=== PATIENT | female | born 1935 | race African-American/Black ===

== ENCOUNTER → 2016-04-29 | Outpatient (CLI) | payer MEDICARE, OTHER ==
[2015-04-18 08:31] VITALS: BP 179/84
[~2016-04-29] MED LIST: AMLO10TA2 PO; AZIT250T PO; CARV6.252 PO; FLUT1DIS3 IH; Ipratropium/Albuterol Sulfate NEB; LISI40TA PO; PROM5SYR2 PO; SIMV20TA3 PO
[2016-04-29 11:29] LABS: CHOLESTEROL/HDL RATIO 2.5
== END | disposition home or self-care (01) ==
LOC: LAB 10:00
PROVIDERS: ATTEND Internal Medicine Interventional Cardiology
DX: E78.5 Hyperlipidemia, unspecified (principal)
CPT/HCPCS: 36415; 80061; 84450; 84460

== ENCOUNTER 2017-08-08 22:45 | Emergency (ER) | payer MEDICARE, OTHER ==
[2017-08-08 23:53] LABS: ADD MAN DIFF? NO
[2017-08-08 23:55] LABS: BASO # 0.1 x10^3/uL (0.0-0.2); BASO % 1 % (0-3); EOS % 11 % (0-3); HEMATOCRIT 39.1 % (36.0-47.0); HEMOGLOBIN 13.4 g/dL (12.0-15.5); LYMPH # 2.8 x10^3/uL (1.0-4.8); LYMPH % 30 % (24-48); MEAN CORPUSCULAR HEMOGLOBIN 34 pg (25-35); MEAN CORPUSCULAR HGB CONC 34 g/dL (31-37); MEAN CORPUSCULAR VOLUME 97 fL (79-100); MONO % 10 % (0-9); NEUT # 4.5 x10^3uL (1.8-7.7); NEUT % 48 % (31-73); PLATELET COUNT 198 x10^3/uL (140-400); RED BLOOD COUNT 4.02 x10^6/uL (3.50-5.40); RED CELL DISTRIBUTION WIDTH 12.9 % (11.5-14.5); WHITE BLOOD COUNT 9.4 x10^3/uL (4.0-11.0)
[2017-08-08] MEDS: diphenhydrAMINE 50 MG/ML VIAL IVP (23:57)
[2017-08-08] MEDS: hydrALAZINE 20 MG/ML VIAL. IVP (23:57)
[2017-08-09 00:03] LABS: SALIC 4.8 mg/dL (2.8-20.0)
[2017-08-09 00:04] LABS: ANION GAP 10 (6-14); BLOOD UREA NITROGEN 24 mg/dL (7-20); CALCIUM 9.2 mg/dL (8.5-10.1); CARBON DIOXIDE 23 mmol/L (21-32); CHLORIDE 105 mmol/L (98-107); CREATININE 1.6 mg/dL (0.6-1.0); GFR 37.6; GLUCOSE 98 mg/dL (70-99); POTASSIUM 3.9 mmol/L (3.5-5.1); SODIUM 138 mmol/L (136-145)
[2017-08-09 00:14] LABS: TROPONINI < 0.017 ng/mL (0.000-0.055)
[2017-08-09 00:40] LABS: BILIRUBIN,URINE NEGATIVE (NEG); CLARITY,URINE CLEAR; COLOR,URINE YELLOW; GLUCOSE,URINE NEGATIVE (NEG); NITRITE,URINE NEGATIVE (NEG); PH,URINE 5.5; PROTEIN,URINE NEGATIVE (NEG-TRACE); UROBILINOGEN,URINE 0.2 mg/dL (0.2 mg/dL)
[2017-08-09 00:54] LABS: BACTERIA,URINE FEW /HPF (0-FEW); RBC,URINE RARE /HPF (0-2); SQUAMOUS EPITHELIAL CELL,UR MOD /LPF
== END 2017-08-09 01:10 | disposition home or self-care (01) ==
LOC: ER 08-09 01:10
DX: I10 Essential (primary) hypertension (principal); J45.909 Unspecified asthma, uncomplicated; K21.9 Gastro-esophageal reflux disease without esophagitis
CPT/HCPCS: 36415; 80048; 80329; 81001; 84484; 85025; 93005; 96374; 96375; 99285-25; J0360; J1200

== ENCOUNTER → 2017-09-30 | Outpatient (CLI) | payer MEDICARE ==
[2017-08-09 00:57] VITALS: BP 154/72
[~2017-09-30] MED LIST changes: +LISI-130 PO; -LISI40TA PO
--- NOTE | 2017-09-30 15:28 | KCIC ---
History: Postmenopausal screening. Black female. Comparison: None. Findings: Bone Densitometry was performed with dual photon absorption of the lumbar spine and left hip. Lumbar Spine: Bone density is 1.186 g/cm2 for L1-L4. T-Score is 1.3. Z-score is 3.3. Left hip: Bone density is 0.759 g/cm2. T-Score is -1.5. Z-score is 0.2. IMPRESSION: 1. Osteopenia of the left hip. 2. Bone mineral density of lumbar spine appears within normal limits. World Health definition of osteoporosis and osteopenia: Normal = T-Score at or above -1.0; osteopenia = T-score between -1.0 and -2.5; osteoporosis = T-score at or below -2.5 Electronically signed by: Matias Barahona MD (09/30/2017 3:24 PM) [facility] [place]
--- NOTE | 2017-09-30 17:45 | KCIC ---
Bilateral digital screening mammograms with 3-D tomosynthesis: Reason for examination: Routine screening. Comparison is made to previous studies dated 12/07/2014 and 10/05/2013.. Bilateral mammograms in CC and oblique projections were obtained with 2-D imaging and 3-D tomosynthesis imaging on a Siemens Inspiration unit and reviewed on the workstation. Interpretation was made with the benefit of CAD. The skin and nipples show no abnormalities. No abnormal axillary lymph nodes are seen. The breast parenchyma shows scattered fatty and fibroglandular density. (Breast density: Category B.) There is a 1.1 cm nodule present at the 7:00 position anteriorly in the left breast which shows a mild interval increase in size when compared to the previous examinations. There are additional small nodules seen bilaterally which are unchanged. There are no new dominant masses, suspicious calcifications or architectural distortion. Benign calcifications are present. Impression: 1.1 cm nodule at the 7:00 position anteriorly in the left breast which shows some mild increase in overall size. This appears to been cystic on previous ultrasound examination however. No other new abnormalities are seen. Recommend routine mammographic follow-up. BI-RADS Category 2: Benign. "Our facility is accredited by the [employer] Mammography Program." "Our facility is accredited by the [employer] Mammography Program." This patient's information has been entered into a reminder system for the patient to be notified with the results of her examination and a target date for the next mammogram. Electronically signed by: Lidia Hernandez MD (09/30/2017 5:41 PM) [id number]
== END | disposition home or self-care (01) ==
LOC: KCIC DEXA 08:38
PROVIDERS: ATTEND Physician Assistant Surgical
DX: Z12.31 Encounter for screening mammogram for malignant neoplasm of breast (principal); Z13.820 Encounter for screening for osteoporosis; N63.24 Unspecified lump in the left breast, lower inner quadrant; M85.88 Other specified disorders of bone density and structure, other site; I11.0 Hypertensive heart disease with heart failure; I50.32 Chronic diastolic (congestive) heart failure; E11.9 Type 2 diabetes mellitus without complications; E78.00 Pure hypercholesterolemia, unspecified; J45.909 Unspecified asthma, uncomplicated; K21.9 Gastro-esophageal reflux disease without esophagitis; Z78.0 Asymptomatic menopausal state; Z90.49 Acquired absence of other specified parts of digestive tract; M19.90 Unspecified osteoarthritis, unspecified site
CPT/HCPCS: 77063; 77067; 77080

== ENCOUNTER 2018-02-06 08:13 | Observation (INO) | payer MEDICARE ==
[~2018-02-06] VITALS: Ht 154.9 cm; Wt 80.9 kg
[~2018-02-06 08:13] MED LIST changes: -AMLO10TA2 PO; +AMLO10TA6 PO; +CARV6.2511 PO; -CARV6.252 PO
[2018-02-06 08:51] LABS: BASO # 0.1 x10^3/uL (0.0-0.2); BASO % 1 % (0-3); EOS % 12 % (0-3); HEMATOCRIT 40.5 % (36.0-47.0); HEMOGLOBIN 14.2 g/dL (12.0-15.5); LYMPH % 24 % (24-48); MEAN CORPUSCULAR HEMOGLOBIN 34 pg (25-35); MEAN CORPUSCULAR HGB CONC 35 g/dL (31-37); MEAN CORPUSCULAR VOLUME 97 fL (79-100); MONO # 0.8 x10^3/uL (0.0-1.1); MONO % 9 % (0-9); NEUT # 4.6 x10^3uL (1.8-7.7); NEUT % 54 % (31-73); PLATELET COUNT 199 x10^3/uL (140-400); RED BLOOD COUNT 4.19 x10^6/uL (3.50-5.40); RED CELL DISTRIBUTION WIDTH 13.1 % (11.5-14.5); WHITE BLOOD COUNT 8.6 x10^3/uL (4.0-11.0)
[2018-02-06 08:59] LABS: CALCIUM 9.6 mg/dL (8.5-10.1); CREATININE 1.5 mg/dL (0.6-1.0); GFR 40.4; POTASSIUM 4.1 mmol/L (3.5-5.1)
--- NOTE | 2018-02-06 08:59 | PHYS DOC ---
Past Medical History Past Medical History: Asthma, GERD, Hypertension Additional Past Medical Histor: "heart valve problem" Past Surgical History: Cholecystectomy, Tubal ligation Additional Past Surgical Histo: neck surgery, sinus surgery, lymph nodes removed Alcohol Use: None Drug Use: None Adult General Chief Complaint Chief Complaint: SHORTNESS OF BREATH HPI HPI Patient is an 82-year-old female who presents to the emergency department for evaluation. She states that for the past 3 days, she has had "tightness" in her breathing. She has not had any chest pain, or other discomfort in her chest. She states she has a history of asthma, and this feels like her prior asthma flares. She has been using her nebulizer machine at home. She has not had any significant cough. She has not had any fevers chills, nausea, vomiting. There are no alleviating, or exacerbating factors to her symptoms, although she states that exertion does seem to worsen her symptoms. She has not had any significant orthopnea, but states she did not sleep well last night. Upon arrival, she is noted to be no respiratory distress, have no wheezing, with a normal oxygen saturation of 100%, on room air. Review of Systems Review of Systems Constitutional: Denies fever or chills [] Eyes: Denies change in visual acuity, redness, or eye pain [] HENT: Denies nasal congestion or sore throat [] Respiratory: Denies cough. Reports shortness of breath [] Cardiovascular: The patient denies any chest pain, palpitations, or orthopnea [] GI: Denies abdominal pain, nausea, vomiting, bloody stools or diarrhea [] : Denies dysuria or hematuria [] Musculoskeletal: Denies back pain or joint pain [] Integument: Denies rash or skin lesions [] Neurologic: Denies headache, focal weakness or sensory changes [] Endocrine: Denies polyuria or polydipsia [] All other systems were reviewed and found to be within normal limits, except as documented in this note. Current Medications Current Medications Current Medications Medications (Trade) Dose Ordered Sig/Bettie Start Time Stop Time Status Last Admin Dose Admin Albuterol/ Ipratropium (Duoneb) 3 ml 1X ONCE 02/06/18 09:45 02/06/18 09:46 DC 02/06/18 09:42 3 ML Allergies Allergies Allergies Coded Allergies Type Severity Reaction Last Updated Verified No Known Drug Allergies 02/22/13 No Physical Exam Physical Exam PHYSICAL EXAM: CONSTITUTIONAL: Well developed, well nourished HEAD: normocephalic, atraumatic EENT: PERRL, EOMI. Conjunctivae normal color, sclerae non-icteric; moist mucous membranes. NECK: Supple, non-tender; no meningismus. LUNGS: Lungs CTA, breathing even and unlabored. Normal air movement. HEART: Regular rate and rhythm, no murmur CHEST: No deformity; non-tender ABDOMEN: The abdomen is soft, and non-tender, no masses or bruits. EXTREM: Normal ROM; no deformity, no calf tenderness. Normal pulses palpable in all extremities. There is no pedal edema. SKIN: No rash; no diaphoresis NEURO: Alert; normal speech and cognition; CN's grossly intact; strength grossly intact without focal deficit. BACK: No CVA TTP. Current Patient Data Vital Signs Vital Signs Date Time Temp Pulse Resp B/P (MAP) Pulse Ox O2 Delivery O2 Flow Rate FiO2 02/06/18 09:44 99 Room Air 02/06/18 09:17 64 18 131/60 (83) 02/06/18 08:38 98.0 98.0 Lab Values Laboratory Tests Test 02/06/18 08:26 White Blood Count 8.6 x10^3/uL (4.0-11.0) Red Blood Count 4.19 x10^6/uL (3.50-5.40) Hemoglobin 14.2 g/dL (12.0-15.5) Hematocrit 40.5 % (36.0-47.0) Mean Corpuscular Volume 97 fL (79-100) Mean Corpuscular Hemoglobin 34 pg (25-35) Mean Corpuscular Hemoglobin Concent 35 g/dL (31-37) Red Cell Distribution Width 13.1 % (11.5-14.5) Platelet Count 199 x10^3/uL (140-400) Neutrophils (%) (Auto) 54 % (31-73) Lymphocytes (%) (Auto) 24 % (24-48) Monocytes (%) (Auto) 9 % (0-9) Eosinophils (%) (Auto) 12 % (0-3) H Basophils (%) (Auto) 1 % (0-3) Neutrophils # (Auto) 4.6 x10^3uL (1.8-7.7) Lymphocytes # (Auto) 2.0 x10^3/uL (1.0-4.8) Monocytes # (Auto) 0.8 x10^3/uL (0.0-1.1) Eosinophils # (Auto) 1.0 x10^3/uL (0.0-0.7) H Basophils # (Auto) 0.1 x10^3/uL (0.0-0.2) Sodium Level 140 mmol/L (136-145) Potassium Level 4.1 mmol/L (3.5-5.1) Chloride Level 105 mmol/L (98-107) Carbon Dioxide Level 25 mmol/L (21-32) Anion Gap 10 (6-14) Blood Urea Nitrogen 30 mg/dL (7-20) H Creatinine 1.5 mg/dL (0.6-1.0) H Estimated GFR (Cockcroft-Gault) 40.4 BUN/Creatinine Ratio 20 (6-20) Glucose Level 118 mg/dL (70-99) H Calcium Level 9.6 mg/dL (8.5-10.1) Total Bilirubin 0.3 mg/dL (0.2-1.0) Aspartate Amino Transferase (AST) 18 U/L (15-37) Alanine Aminotransferase (ALT) 24 U/L (14-59) Alkaline Phosphatase 80 U/L (46-116) Troponin I Quantitative < 0.017 ng/mL (0.000-0.055) ZU-Nyr-Y-Type Natriuretic Peptide 129 pg/mL (0-449) Total Protein 7.8 g/dL (6.4-8.2) Albumin 3.8 g/dL (3.4-5.0) Albumin/Globulin Ratio 1.0 (1.0-1.7) Laboratory Tests 02/06/18 08:26 Laboratory Tests 02/06/18 08:26 EKG EKG [Normal sinus rhythm at a rate of 69 bpm, left axis deviation, occasional PVCs. There are no acute ischemic ST/T changes.] Radiology/Procedures Radiology/Procedures [PROCEDURE: CHEST PA & LATERAL CHEST PA LATERAL CLINICAL INDICATION: SHORTNESS OF BREATH FOR A FEW DAYS WORSE LAST NIGHT COMPARISON: 11/02/2016 FINDINGS: Heart is normal in size. Lungs are hyperinflated with flattening of diaphragm. No focal consolidation or interstitial opacities. No pneumothorax or pleural effusion. Visualized bony thorax is within normal limits. IMPRESSION: Findings of COPD. No acute pulmonary process. ] Course & Med Decision Making Course & Med Decision Making Pertinent Labs and Imaging studies reviewed. (See chart for details) [10:20 AM: The patient's condition remains stable. She is somewhat vague in trying to describe her symptoms of "tightness in her chest. It does seem to be more of a tightness of breathing, rather than actual chest discomfort but she is extremely concerned about the cause of her symptoms, despite normal oxygen saturation, lack of tachycardia, no pleuritic pain, and no wheezing. The patient is desirous of overnight hospitalization for further cardiac evaluation and monitoring. The hospitalist has graciously agreed to admit the patient.] Dragon Disclaimer Dragon Disclaimer This electronic medical record was generated, in whole or in part, using a voice recognition dictation system. Departure Departure Impression: Primary Impression: Dyspnea Additional Impression: Atypical chest pain Disposition: 09 ADMITTED INPATIENT Admitting Physician: Presley Adorno Condition: STABLE Referrals: NO PCP (PCP) Problem Qualifiers ARMOND CHENG MD Feb 06, 2018 08:59
[2018-02-06 09:05] LABS: ALBUMIN 3.8 g/dL (3.4-5.0); TOTAL BILIRUBIN 0.3 mg/dL (0.2-1.0); TOTAL PROTEIN 7.8 g/dL (6.4-8.2)
--- NOTE | 2018-02-06 09:12 | RAD ---
CHEST PA LATERAL CLINICAL INDICATION: SHORTNESS OF BREATH FOR A FEW DAYS WORSE LAST NIGHT COMPARISON: 11/02/2016 FINDINGS: Heart is normal in size. Lungs are hyperinflated with flattening of diaphragm. No focal consolidation or interstitial opacities. No pneumothorax or pleural effusion. Visualized bony thorax is within normal limits. IMPRESSION: Findings of COPD. No acute pulmonary process. Electronically signed by: Bassam Terrazas DO (02/06/2018 9:08 AM) [facility]
[2018-02-06] MEDS ORDERED: IPRATRPIUM/ALBUTEROL 0.5/2.5MG 3 ML NEBU. NEB ONE (09:45)
--- NOTE | 2018-02-06 10:30 | EKG ---
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
[2018-02-06 11:00] VITALS: BP 138/60
--- NOTE | 2018-02-06 11:18 | PDOC1 ---
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 [facility] Past Medical History Past Medical History Past Medical History Past Medical History: Asthma, GERD, Hypertension Additional Past Medical Histor: "heart valve problem" Past Surgical History: Cholecystectomy, Tubal ligation Additional Past Surgical Histo: neck surgery, sinus surgery, lymph nodes removed Alcohol Use: None Drug Use: None family hx ASHD smoked Cardiovascular: HTN, Hyperlipidemia, Valve insufficiency Pulmonary: Asthma, Bronchitis CENTRAL NERVOUS SYSTEM: Other GI: No pertinent hx Heme/Onc: No pertinent hx Hepatobiliary: No pertinent hx, Cholelithiasis Psych: No pertinent hx Musculoskeletal: Osteoarthritis Rheumatologic: No pertinent hx Infectious disease: No pertinent hx Renal/: No pertinent hx Endocrine: No pertinent hx Past Surgical History Past Surgical History: Cholecystectomy, Cataract Removal, Tubal Ligation, Other Family History Family History: Heart Disease, High Cholestrol Social History Smoke: No ALCOHOL: none Drugs: None Current Problem List Problem List Problems Medical Problems: (1) Atypical chest pain Status: Acute (2) Dyspnea Status: Acute Current Medications Current Medications Current Medications Albuterol/ Ipratropium (Duoneb) 3 ml 1X ONCE NEB Last administered on at 09:42; Start 02/06/18 at 09:45; Stop 02/06/18 at 09:46; Status DC Active Scripts Active Prometh-Codein 6.25-10 mg/5 ml (Promethazine HCl/Codeine) 5 Ml Syrup 5 Ml PO Q6- 8HRS PRN Zithromax (Azithromycin) 250 Mg Tablet 1 Pkg PO UD [Ipratropium/Albuterol Sulfate] 3 ML Nebu 3 Ml NEB PRN Q6HRS PRN Reported Advair 250-50 Diskus (Fluticasone/Salmeterol) 1 Each Disk.w.dev 1 Each IH Carvedilol 6.25 Mg Tablet 6.25 Mg PO Amlodipine Besylate 10 Mg Tablet 10 Mg PO Lisinopril 40 Mg Tablet 40 Mg PO Simvastatin 20 Mg Tablet 20 Mg PO Allergies Allergies: Coded Allergies: No Known Drug Allergies (Unverified , 02/22/13) ROS Review of System Review of Systems Review of Systems Constitutional: Denies fever or chills [] Eyes: Denies change in visual acuity, redness, or eye pain [] HENT: Denies nasal congestion or sore throat [] Respiratory: Denies cough. Reports shortness of breath FEELS BETTER AFTER BREATHING RX [] Cardiovascular: The patient denies any chest pain, palpitations, or orthopnea [] GI: Denies abdominal pain, nausea, vomiting, bloody stools or diarrhea [] : Denies dysuria or hematuria [] Musculoskeletal: Denies back pain or joint pain [] Integument: Denies rash or skin lesions [] Neurologic: Denies headache, focal weakness or sensory changes [] Endocrine: Denies polyuria or polydipsia [] 14 PT systems were reviewed and found to be within normal limits, except as documented General: YES: Fatigue ALLERGY AND IMMUNOLOGY: No: Hives, Insect Bite Sensitivity, Itchy/Watery Eyes, Nasal Congestion, Post Nasal Drip, Seasonal Allergies, Other ENDOCRINE: No: Breast Changes, Galactorrhea, Hair Pattern Changes, Hot Flashes , Malaise/lethargy, Mood Swings, Palpitations, Polydipsia/polyuria, Skin Changes , Temperature Intolerance, Unexpected Weight Changes, Other Breast: No New/Changing Breast Lumps, No Nipple changes, No Nipple discharge, No Other Respiratory: YES: Shortness of breath, SOB with excertion Cardiovascular: yes Other (CHEST TIGHTNESS, RIGHT SIDED) Gastrointestinal: No Nausea, No Vomiting, No Abdominal Pain, No Diarrhea, No Constipation, No Melena, No Hematochezia, No Other Physical Exam Physical Exam Physical Exam Physical Exam PHYSICAL EXAM: CONSTITUTIONAL: Well developed, well nourished HEAD: normocephalic, atraumatic EENT: PERRL, EOMI. Conjunctivae normal color, sclerae non-icteric; moist mucous membranes. NECK: Supple, non-tender; no meningismus. LUNGS: Lungs CTA, breathing even and unlabored. Normal air movement. HEART: Regular rate and rhythm, no murmur CHEST: No deformity; non-tender ABDOMEN: The abdomen is soft, and non-tender, no masses or bruits. EXTREM: Normal ROM; no deformity, no calf tenderness. Normal pulses palpable in all extremities. There is no pedal edema. SKIN: No rash; no diaphoresis NEURO: Alert; normal speech and cognition; CN's grossly intact; strength grossly intact without focal deficit. BACK: No CVA TTP. General: Alert, Oriented X3, Cooperative HEENT: Atraumatic, PERRLA, EOMI, Mucous membr. moist/pink Lungs: Normal air movement Heart: S1S2 Breasts: Not examined Abdomen: Normal bowel sounds, Soft, No tenderness, Other (OBESE) Rectal Exam: not examined Extremities: No clubbing, No cyanosis Skin: No rashes, No significant lesion Neuro: Normal speech, Cranial nerves 3-12 NL Psych/Mental Status: Mental status NL, Mood NL Vitals Vitals Vital Signs Date Time Temp Pulse Resp B/P (MAP) Pulse Ox O2 Delivery O2 Flow Rate FiO2 02/06/18 09:44 99 Room Air 02/06/18 09:17 64 18 131/60 (83) 02/06/18 08:38 98.0 98.0 Labs Labs Laboratory Tests Test 02/06/18 08:26 White Blood Count 8.6 x10^3/uL (4.0-11.0) Red Blood Count 4.19 x10^6/uL (3.50-5.40) Hemoglobin 14.2 g/dL (12.0-15.5) Hematocrit 40.5 % (36.0-47.0) Mean Corpuscular Volume 97 fL (79-100) Mean Corpuscular Hemoglobin 34 pg (25-35) Mean Corpuscular Hemoglobin Concent 35 g/dL (31-37) Red Cell Distribution Width 13.1 % (11.5-14.5) Platelet Count 199 x10^3/uL (140-400) Neutrophils (%) (Auto) 54 % (31-73) Lymphocytes (%) (Auto) 24 % (24-48) Monocytes (%) (Auto) 9 % (0-9) Eosinophils (%) (Auto) 12 % (0-3) Basophils (%) (Auto) 1 % (0-3) Neutrophils # (Auto) 4.6 x10^3uL (1.8-7.7) Lymphocytes # (Auto) 2.0 x10^3/uL (1.0-4.8) Monocytes # (Auto) 0.8 x10^3/uL (0.0-1.1) Eosinophils # (Auto) 1.0 x10^3/uL (0.0-0.7) Basophils # (Auto) 0.1 x10^3/uL (0.0-0.2) Sodium Level 140 mmol/L (136-145) Potassium Level 4.1 mmol/L (3.5-5.1) Chloride Level 105 mmol/L (98-107) Carbon Dioxide Level 25 mmol/L (21-32) Anion Gap 10 (6-14) Blood Urea Nitrogen 30 mg/dL (7-20) Creatinine 1.5 mg/dL (0.6-1.0) Estimated GFR (Cockcroft-Gault) 40.4 BUN/Creatinine Ratio 20 (6-20) Glucose Level 118 mg/dL (70-99) Calcium Level 9.6 mg/dL (8.5-10.1) Total Bilirubin 0.3 mg/dL (0.2-1.0) Aspartate Amino Transf (AST/SGOT) 18 U/L (15-37) Alanine Aminotransferase (ALT/SGPT) 24 U/L (14-59) Alkaline Phosphatase 80 U/L (46-116) Troponin I Quantitative < 0.017 ng/mL (0.000-0.055) UG-Mmg-S-Type Natriuretic Peptide 129 pg/mL (0-449) Total Protein 7.8 g/dL (6.4-8.2) Albumin 3.8 g/dL (3.4-5.0) Albumin/Globulin Ratio 1.0 (1.0-1.7) Laboratory Tests Test 02/06/18 08:26 White Blood Count 8.6 x10^3/uL (4.0-11.0) Red Blood Count 4.19 x10^6/uL (3.50-5.40) Hemoglobin 14.2 g/dL (12.0-15.5) Hematocrit 40.5 % (36.0-47.0) Mean Corpuscular Volume 97 fL (79-100) Mean Corpuscular Hemoglobin 34 pg (25-35) Mean Corpuscular Hemoglobin Concent 35 g/dL (31-37) Red Cell Distribution Width 13.1 % (11.5-14.5) Platelet Count 199 x10^3/uL (140-400) Neutrophils (%) (Auto) 54 % (31-73) Lymphocytes (%) (Auto) 24 % (24-48) Monocytes (%) (Auto) 9 % (0-9) Eosinophils (%) (Auto) 12 % (0-3) Basophils (%) (Auto) 1 % (0-3) Neutrophils # (Auto) 4.6 x10^3uL (1.8-7.7) Lymphocytes # (Auto) 2.0 x10^3/uL (1.0-4.8) Monocytes # (Auto) 0.8 x10^3/uL (0.0-1.1) Eosinophils # (Auto) 1.0 x10^3/uL (0.0-0.7) Basophils # (Auto) 0.1 x10^3/uL (0.0-0.2) Sodium Level 140 mmol/L (136-145) Potassium Level 4.1 mmol/L (3.5-5.1) Chloride Level 105 mmol/L (98-107) Carbon Dioxide Level 25 mmol/L (21-32) Anion Gap 10 (6-14) Blood Urea Nitrogen 30 mg/dL (7-20) Creatinine 1.5 mg/dL (0.6-1.0) Estimated GFR (Cockcroft-Gault) 40.4 BUN/Creatinine Ratio 20 (6-20) Glucose Level 118 mg/dL (70-99) Calcium Level 9.6 mg/dL (8.5-10.1) Total Bilirubin 0.3 mg/dL (0.2-1.0) Aspartate Amino Transf (AST/SGOT) 18 U/L (15-37) Alanine Aminotransferase (ALT/SGPT) 24 U/L (14-59) Alkaline Phosphatase 80 U/L (46-116) Troponin I Quantitative < 0.017 ng/mL (0.000-0.055) ZQ-Xzp-U-Type Natriuretic Peptide 129 pg/mL (0-449) Total Protein 7.8 g/dL (6.4-8.2) Albumin 3.8 g/dL (3.4-5.0) Albumin/Globulin Ratio 1.0 (1.0-1.7) VTE Prophylaxis Ordered VTE Prophylaxis Devices: Yes VTE Pharmacological Prophylaxi: Yes Assessment/Plan Assessment/Plan Impression: Dyspnea Atypical chest pain possible asthma MORBID OBESITY HYPERLIPIDEMIA Hypertension ADMITTED INPATIENT tele cardiology consult breathing treatments pulm consult DVT PROPHYLAXIS BUDESONIDE 0.5MG BID NEBS serial troponin i prednisone 50 mg po x 1 now gi prophylaxis CHERYL MARTINES MD Feb 06, 2018 11:18
[2018-02-06] MEDS ORDERED: NON FORMULARY ITEM ([Ipratropium/Albuterol Sulfate] 3 ML) NEB PRN (11:30)
[2018-02-06] MEDS ORDERED: ALBUTEROL SULFATE 2.5 MG/3 ML NEBU. NEB PRN (11:30)
[2018-02-06] MEDS ORDERED: PROMETH/CODEINE 6.25/10MG 5 ML SYRUP. PO PRN (11:30)
[2018-02-06] MEDS ORDERED: predniSONE 10 MG TABLET PO ONE (12:00)
[2018-02-06] MEDS: amLODIPine BESYLATE 10 MG TABLET PO SCH (12:00)
[2018-02-06] MEDS: CARVEDILOL 6.25 MG TABLET. PO SCH ×2 (12:00→17:00)
[2018-02-06] MEDS: LISINOPRIL 20 MG TABLET PO SCH (12:00)
[2018-02-06] MEDS: BUDESONIDE 0.5 MG/2 ML NEBU. NEB SCH ×2 (12:00→19:34)
--- NOTE | 2018-02-06 13:16 | PDOC ---
PULMONARY PROGRESS NOTES Vitals Vital Signs Date Time Temp Pulse Resp B/P (MAP) Pulse Ox O2 Delivery O2 Flow Rate FiO2 02/06/18 10:47 58 22 137/60 (85) 99 Room Air 02/06/18 08:38 98.0 98.0 Labs Laboratory Tests Test 02/06/18 08:26 White Blood Count 8.6 x10^3/uL (4.0-11.0) Red Blood Count 4.19 x10^6/uL (3.50-5.40) Hemoglobin 14.2 g/dL (12.0-15.5) Hematocrit 40.5 % (36.0-47.0) Mean Corpuscular Volume 97 fL (79-100) Mean Corpuscular Hemoglobin 34 pg (25-35) Mean Corpuscular Hemoglobin Concent 35 g/dL (31-37) Red Cell Distribution Width 13.1 % (11.5-14.5) Platelet Count 199 x10^3/uL (140-400) Neutrophils (%) (Auto) 54 % (31-73) Lymphocytes (%) (Auto) 24 % (24-48) Monocytes (%) (Auto) 9 % (0-9) Eosinophils (%) (Auto) 12 % (0-3) Basophils (%) (Auto) 1 % (0-3) Neutrophils # (Auto) 4.6 x10^3uL (1.8-7.7) Lymphocytes # (Auto) 2.0 x10^3/uL (1.0-4.8) Monocytes # (Auto) 0.8 x10^3/uL (0.0-1.1) Eosinophils # (Auto) 1.0 x10^3/uL (0.0-0.7) Basophils # (Auto) 0.1 x10^3/uL (0.0-0.2) Sodium Level 140 mmol/L (136-145) Potassium Level 4.1 mmol/L (3.5-5.1) Chloride Level 105 mmol/L (98-107) Carbon Dioxide Level 25 mmol/L (21-32) Anion Gap 10 (6-14) Blood Urea Nitrogen 30 mg/dL (7-20) Creatinine 1.5 mg/dL (0.6-1.0) Estimated GFR (Cockcroft-Gault) 40.4 BUN/Creatinine Ratio 20 (6-20) Glucose Level 118 mg/dL (70-99) Calcium Level 9.6 mg/dL (8.5-10.1) Magnesium Level 2.2 mg/dL (1.8-2.4) Total Bilirubin 0.3 mg/dL (0.2-1.0) Aspartate Amino Transf (AST/SGOT) 18 U/L (15-37) Alanine Aminotransferase (ALT/SGPT) 24 U/L (14-59) Alkaline Phosphatase 80 U/L (46-116) Troponin I Quantitative < 0.017 ng/mL (0.000-0.055) MP-Xak-X-Type Natriuretic Peptide 129 pg/mL (0-449) Total Protein 7.8 g/dL (6.4-8.2) Albumin 3.8 g/dL (3.4-5.0) Albumin/Globulin Ratio 1.0 (1.0-1.7) Laboratory Tests Test 02/06/18 08:26 White Blood Count 8.6 x10^3/uL (4.0-11.0) Red Blood Count 4.19 x10^6/uL (3.50-5.40) Hemoglobin 14.2 g/dL (12.0-15.5) Hematocrit 40.5 % (36.0-47.0) Mean Corpuscular Volume 97 fL (79-100) Mean Corpuscular Hemoglobin 34 pg (25-35) Mean Corpuscular Hemoglobin Concent 35 g/dL (31-37) Red Cell Distribution Width 13.1 % (11.5-14.5) Platelet Count 199 x10^3/uL (140-400) Neutrophils (%) (Auto) 54 % (31-73) Lymphocytes (%) (Auto) 24 % (24-48) Monocytes (%) (Auto) 9 % (0-9) Eosinophils (%) (Auto) 12 % (0-3) Basophils (%) (Auto) 1 % (0-3) Neutrophils # (Auto) 4.6 x10^3uL (1.8-7.7) Lymphocytes # (Auto) 2.0 x10^3/uL (1.0-4.8) Monocytes # (Auto) 0.8 x10^3/uL (0.0-1.1) Eosinophils # (Auto) 1.0 x10^3/uL (0.0-0.7) Basophils # (Auto) 0.1 x10^3/uL (0.0-0.2) Sodium Level 140 mmol/L (136-145) Potassium Level 4.1 mmol/L (3.5-5.1) Chloride Level 105 mmol/L (98-107) Carbon Dioxide Level 25 mmol/L (21-32) Anion Gap 10 (6-14) Blood Urea Nitrogen 30 mg/dL (7-20) Creatinine 1.5 mg/dL (0.6-1.0) Estimated GFR (Cockcroft-Gault) 40.4 BUN/Creatinine Ratio 20 (6-20) Glucose Level 118 mg/dL (70-99) Calcium Level 9.6 mg/dL (8.5-10.1) Magnesium Level 2.2 mg/dL (1.8-2.4) Total Bilirubin 0.3 mg/dL (0.2-1.0) Aspartate Amino Transf (AST/SGOT) 18 U/L (15-37) Alanine Aminotransferase (ALT/SGPT) 24 U/L (14-59) Alkaline Phosphatase 80 U/L (46-116) Troponin I Quantitative < 0.017 ng/mL (0.000-0.055) AO-Wqk-S-Type Natriuretic Peptide 129 pg/mL (0-449) Total Protein 7.8 g/dL (6.4-8.2) Albumin 3.8 g/dL (3.4-5.0) Albumin/Globulin Ratio 1.0 (1.0-1.7) Medications Active Scripts Medications Dose Route/Sig Max Daily Dose Days Date Category Prometh-Codein 6.25-10 mg/5 ml (Promethazine HCl/Codeine) 5 Ml Syrup 5 Ml PO Q6-8HRS PRN 11/07/14 Rx Zithromax (Azithromycin) 250 Mg Tablet 1 Pkg PO UD 11/07/14 Rx [Ipratropium/Albuterol Sulfate] 3 ML Nebu 3 Ml NEB PRN Q6HRS PRN 11/07/14 Rx Advair 250-50 Diskus (Fluticasone/Salmeterol) 1 Each Disk.w.dev 1 Each IH 02/22/13 Reported Carvedilol (Carvedilol) 6.25 Mg Tablet 6.25 Mg PO 02/22/13 Reported Amlodipine Besylate 10 Mg Tablet 10 Mg PO 02/22/13 Reported Lisinopril 40 Mg Tablet 40 Mg PO 02/22/13 Reported Simvastatin 20 Mg Tablet 20 Mg PO 02/22/13 Reported Impression . NOTE DICTATED ASTHMA EXACERBATION HOME IN AM OK BY RUTH HOROWITZ MD Feb 06, 2018 13:16
[2018-02-06] MEDS ORDERED: HYDR-2869 PO (14:21)
[2018-02-06] MEDS ORDERED: ASPI81TA50 PO (14:21)
[2018-02-06] MEDS ORDERED: PRAV20TA2 PO (14:21)
[2018-02-06] MEDS ORDERED: PANT20TA2 PO (14:21)
[2018-02-06 14:34] VITALS: BP 112/68
[2018-02-06 19:30] VITALS: BP 135/79
[2018-02-06] MEDS ORDERED: ATORVASTATIN CALCIUM 20 MG TABLET PO SCH (21:00)
--- NOTE | 2018-02-06 21:37 | CONS ---
DATE OF CONSULTATION: 02/06/2018 ATTENDING PHYSICIAN: Dr. Yañez. REASON FOR CONSULTATION: The patient seen in pulmonary consultation at the request of Dr. Yañez for increasing shortness of air. HISTORY OF PRESENT ILLNESS: The patient has a history of adult onset asthma, normally uses Advair and p.r.n. albuterol, had a respiratory tract infection several weeks ago. She came in because she was not improving. She had increasing shortness of breath, some chest tightness on the right, radiating to the back, some wheezing, cough mostly nonproductive. Denies fever, chills, or night sweats. PAST MEDICAL HISTORY: Otherwise remarkable for adult-onset asthma, gastroesophageal reflux, hypertension. She has had no formal allergy testing. She could not tell me what triggers her asthma. PAST SURGICAL HISTORY: Status post cholecystectomy, tubal ligation, neck surgery, sinus surgery. ALLERGIES: No known drug allergies. REVIEW OF SYSTEMS: CONSTITUTIONAL: No fever or chills. EYES: No change in visual acuity. HENT: No nasal congestion or sore throat. PULMONARY: As indicated above. CARDIOVASCULAR: No chest pain. No pressure. GASTROINTESTINAL: No nausea, vomiting, diarrhea. GENITOURINARY: No dysuria or frequency. MUSCULOSKELETAL: No localized muscle aches or joint pains. SKIN: No new skin rashes. NEUROLOGIC: No headaches, diplopia or blurred vision. CURRENT MEDICATIONS: List was reviewed. SOCIAL HISTORY: She denies any alcohol or tobacco. PHYSICAL EXAMINATION: GENERAL: The patient was on room air, in no respiratory distress. VITAL SIGNS: Stable. O2 saturation was greater than 92%. HEENT: Eyes, the sclerae were nonicteric. NECK: Jugular venous distention was not elevated. No lymphadenopathy. CHEST: Full expansion. LUNGS: Adequate airway flow, no wheezes. CARDIOVASCULAR: Regular rate and rhythm with S1, S2, no S3. ABDOMEN: Soft, nontender, nondistended. EXTREMITIES: No clubbing, cyanosis or edema. LABORATORY DATA: Reviewed. Chest x-ray reviewed, normal. IMPRESSION: 1. Adult onset asthma with exacerbation. 2. Atypical chest pain, more than likely musculoskeletal. 3. Other comorbidities as listed above. PLAN: 1. Respiratory status compensated enough to discharge home in the a.m. 2. Prednisone 30 mg x 5 days. 3. Continue Advair and p.r.n. albuterol. 4. No need for antibiotics. The patient instructed on the importance of avoiding eating close to bedtime caffeinated beverages and initiating a walking program, walking every day. I do appreciate the privilege in sharing in the patient's care. RUTH POWELL MD DR: HUNTER/lida JOB#: [id number] / [id number]
[2018-02-06 22:50] VITALS: BP 116/57
[2018-02-07 03:30] VITALS: BP 131/61
[2018-02-07 05:10] LABS: BASO % 0 % (0-3); EOS % 0 % (0-3); HEMATOCRIT 36.2 % (36.0-47.0); HEMOGLOBIN 12.6 g/dL (12.0-15.5); LYMPH # 0.8 x10^3/uL (1.0-4.8); LYMPH % 11 % (24-48); MEAN CORPUSCULAR HEMOGLOBIN 34 pg (25-35); MEAN CORPUSCULAR HGB CONC 35 g/dL (31-37); MEAN CORPUSCULAR VOLUME 97 fL (79-100); MONO # 0.4 x10^3/uL (0.0-1.1); MONO % 6 % (0-9); NEUT # 5.9 x10^3uL (1.8-7.7); NEUT % 83 % (31-73); PLATELET COUNT 185 x10^3/uL (140-400); RED BLOOD COUNT 3.74 x10^6/uL (3.50-5.40); RED CELL DISTRIBUTION WIDTH 12.8 % (11.5-14.5); WHITE BLOOD COUNT 7.1 x10^3/uL (4.0-11.0)
[2018-02-07 05:34] LABS: CALCIUM 9.2 mg/dL (8.5-10.1); CREATININE 1.4 mg/dL (0.6-1.0); GFR 43.8
[2018-02-07 07:15] VITALS: BP 137/69
[2018-02-07] MEDS ORDERED: PANTOPRAZOLE 40 MG TABLET.DR. PO SCH (07:30)
--- NOTE | 2018-02-07 08:08 | PDOC ---
PROGRESS NOTES Chief Complaint Chief Complaint Shortness of breath History of Present Illness History of Present Illness 82yo F admitted with progressive shortness of breath with h/o asthma who was admitted after failing outpatient treatment at home. She did have some chest pain, awaiting echocardiogram today. Feeling better today, discussed with daughter bedside. Wishes for discharge home. A/P: Dyspnea - has nebs at home, advair, needs a rescue inhaler Atypical chest pain possible asthma MORBID OBESITY HYPERLIPIDEMIA Hypertension Vitals Vitals Vital Signs Date Time Temp Pulse Resp B/P (MAP) Pulse Ox O2 Delivery O2 Flow Rate FiO2 02/07/18 03:30 98.4 74 18 131/61 (84) 99 Room Air 98.4 Physical Exam General: Alert, Oriented X3, Cooperative Abdomen: Normal bowel sounds, Soft, No tenderness, Other (OBESE) Extremities: No clubbing, No cyanosis Skin: No rashes, No significant lesion Labs LABS Laboratory Tests Test 02/06/18 08:26 02/06/18 13:15 02/06/18 16:30 02/07/18 03:40 White Blood Count 8.6 x10^3/uL (4.0-11.0) 7.1 x10^3/uL (4.0-11.0) Red Blood Count 4.19 x10^6/uL (3.50-5.40) 3.74 x10^6/uL (3.50-5.40) Hemoglobin 14.2 g/dL (12.0-15.5) 12.6 g/dL (12.0-15.5) Hematocrit 40.5 % (36.0-47.0) 36.2 % (36.0-47.0) Mean Corpuscular Volume 97 fL (79-100) 97 fL (79-100) Mean Corpuscular Hemoglobin 34 pg (25-35) 34 pg (25-35) Mean Corpuscular Hemoglobin Concent 35 g/dL (31-37) 35 g/dL (31-37) Red Cell Distribution Width 13.1 % (11.5-14.5) 12.8 % (11.5-14.5) Platelet Count 199 x10^3/uL (140-400) 185 x10^3/uL (140-400) Neutrophils (%) (Auto) 54 % (31-73) 83 % (31-73) Lymphocytes (%) (Auto) 24 % (24-48) 11 % (24-48) Monocytes (%) (Auto) 9 % (0-9) 6 % (0-9) Eosinophils (%) (Auto) 12 % (0-3) 0 % (0-3) Basophils (%) (Auto) 1 % (0-3) 0 % (0-3) Neutrophils # (Auto) 4.6 x10^3uL (1.8-7.7) 5.9 x10^3uL (1.8-7.7) Lymphocytes # (Auto) 2.0 x10^3/uL (1.0-4.8) 0.8 x10^3/uL (1.0-4.8) Monocytes # (Auto) 0.8 x10^3/uL (0.0-1.1) 0.4 x10^3/uL (0.0-1.1) Eosinophils # (Auto) 1.0 x10^3/uL (0.0-0.7) 0.0 x10^3/uL (0.0-0.7) Basophils # (Auto) 0.1 x10^3/uL (0.0-0.2) 0.0 x10^3/uL (0.0-0.2) Sodium Level 140 mmol/L (136-145) 141 mmol/L (136-145) Potassium Level 4.1 mmol/L (3.5-5.1) 4.0 mmol/L (3.5-5.1) Chloride Level 105 mmol/L (98-107) 107 mmol/L (98-107) Carbon Dioxide Level 25 mmol/L (21-32) 24 mmol/L (21-32) Anion Gap 10 (6-14) 10 (6-14) Blood Urea Nitrogen 30 mg/dL (7-20) 23 mg/dL (7-20) Creatinine 1.5 mg/dL (0.6-1.0) 1.4 mg/dL (0.6-1.0) Estimated GFR (Cockcroft-Gault) 40.4 43.8 BUN/Creatinine Ratio 20 (6-20) Glucose Level 118 mg/dL (70-99) 158 mg/dL (70-99) Calcium Level 9.6 mg/dL (8.5-10.1) 9.2 mg/dL (8.5-10.1) Magnesium Level 2.2 mg/dL (1.8-2.4) Total Bilirubin 0.3 mg/dL (0.2-1.0) Aspartate Amino Transf (AST/SGOT) 18 U/L (15-37) Alanine Aminotransferase (ALT/SGPT) 24 U/L (14-59) Alkaline Phosphatase 80 U/L (46-116) Troponin I Quantitative < 0.017 ng/mL (0.000-0.055) < 0.017 ng/mL (0.000-0.055) < 0.017 ng/mL (0.000-0.055) OL-Zud-V-Type Natriuretic Peptide 129 pg/mL (0-449) Total Protein 7.8 g/dL (6.4-8.2) Albumin 3.8 g/dL (3.4-5.0) Albumin/Globulin Ratio 1.0 (1.0-1.7) Assessment and Plan Assessmemt and Plan Problems Medical Problems: (1) Atypical chest pain Status: Acute (2) Dyspnea Status: Acute Comment Review of Relevant I have reviewed the following items terry (where applicable) has been applied. Labs Laboratory Tests Test 02/06/18 08:26 02/06/18 13:15 02/06/18 16:30 02/07/18 03:40 White Blood Count 8.6 x10^3/uL (4.0-11.0) 7.1 x10^3/uL (4.0-11.0) Red Blood Count 4.19 x10^6/uL (3.50-5.40) 3.74 x10^6/uL (3.50-5.40) Hemoglobin 14.2 g/dL (12.0-15.5) 12.6 g/dL (12.0-15.5) Hematocrit 40.5 % (36.0-47.0) 36.2 % (36.0-47.0) Mean Corpuscular Volume 97 fL (79-100) 97 fL (79-100) Mean Corpuscular Hemoglobin 34 pg (25-35) 34 pg (25-35) Mean Corpuscular Hemoglobin Concent 35 g/dL (31-37) 35 g/dL (31-37) Red Cell Distribution Width 13.1 % (11.5-14.5) 12.8 % (11.5-14.5) Platelet Count 199 x10^3/uL (140-400) 185 x10^3/uL (140-400) Neutrophils (%) (Auto) 54 % (31-73) 83 % (31-73) Lymphocytes (%) (Auto) 24 % (24-48) 11 % (24-48) Monocytes (%) (Auto) 9 % (0-9) 6 % (0-9) Eosinophils (%) (Auto) 12 % (0-3) 0 % (0-3) Basophils (%) (Auto) 1 % (0-3) 0 % (0-3) Neutrophils # (Auto) 4.6 x10^3uL (1.8-7.7) 5.9 x10^3uL (1.8-7.7) Lymphocytes # (Auto) 2.0 x10^3/uL (1.0-4.8) 0.8 x10^3/uL (1.0-4.8) Monocytes # (Auto) 0.8 x10^3/uL (0.0-1.1) 0.4 x10^3/uL (0.0-1.1) Eosinophils # (Auto) 1.0 x10^3/uL (0.0-0.7) 0.0 x10^3/uL (0.0-0.7) Basophils # (Auto) 0.1 x10^3/uL (0.0-0.2) 0.0 x10^3/uL (0.0-0.2) Sodium Level 140 mmol/L (136-145) 141 mmol/L (136-145) Potassium Level 4.1 mmol/L (3.5-5.1) 4.0 mmol/L (3.5-5.1) Chloride Level 105 mmol/L (98-107) 107 mmol/L (98-107) Carbon Dioxide Level 25 mmol/L (21-32) 24 mmol/L (21-32) Anion Gap 10 (6-14) 10 (6-14) Blood Urea Nitrogen 30 mg/dL (7-20) 23 mg/dL (7-20) Creatinine 1.5 mg/dL (0.6-1.0) 1.4 mg/dL (0.6-1.0) Estimated GFR (Cockcroft-Gault) 40.4 43.8 BUN/Creatinine Ratio 20 (6-20) Glucose Level 118 mg/dL (70-99) 158 mg/dL (70-99) Calcium Level 9.6 mg/dL (8.5-10.1) 9.2 mg/dL (8.5-10.1) Magnesium Level 2.2 mg/dL (1.8-2.4) Total Bilirubin 0.3 mg/dL (0.2-1.0) Aspartate Amino Transf (AST/SGOT) 18 U/L (15-37) Alanine Aminotransferase (ALT/SGPT) 24 U/L (14-59) Alkaline Phosphatase 80 U/L (46-116) Troponin I Quantitative < 0.017 ng/mL (0.000-0.055) < 0.017 ng/mL (0.000-0.055) < 0.017 ng/mL (0.000-0.055) OP-Fbf-F-Type Natriuretic Peptide 129 pg/mL (0-449) Total Protein 7.8 g/dL (6.4-8.2) Albumin 3.8 g/dL (3.4-5.0) Albumin/Globulin Ratio 1.0 (1.0-1.7) Laboratory Tests Test 02/06/18 08:26 02/06/18 13:15 02/06/18 16:30 02/07/18 03:40 White Blood Count 8.6 x10^3/uL (4.0-11.0) 7.1 x10^3/uL (4.0-11.0) Red Blood Count 4.19 x10^6/uL (3.50-5.40) 3.74 x10^6/uL (3.50-5.40) Hemoglobin 14.2 g/dL (12.0-15.5) 12.6 g/dL (12.0-15.5) Hematocrit 40.5 % (36.0-47.0) 36.2 % (36.0-47.0) Mean Corpuscular Volume 97 fL (79-100) 97 fL (79-100) Mean Corpuscular Hemoglobin 34 pg (25-35) 34 pg (25-35) Mean Corpuscular Hemoglobin Concent 35 g/dL (31-37) 35 g/dL (31-37) Red Cell Distribution Width 13.1 % (11.5-14.5) 12.8 % (11.5-14.5) Platelet Count 199 x10^3/uL (140-400) 185 x10^3/uL (140-400) Neutrophils (%) (Auto) 54 % (31-73) 83 % (31-73) Lymphocytes (%) (Auto) 24 % (24-48) 11 % (24-48) Monocytes (%) (Auto) 9 % (0-9) 6 % (0-9) Eosinophils (%) (Auto) 12 % (0-3) 0 % (0-3) Basophils (%) (Auto) 1 % (0-3) 0 % (0-3) Neutrophils # (Auto) 4.6 x10^3uL (1.8-7.7) 5.9 x10^3uL (1.8-7.7) Lymphocytes # (Auto) 2.0 x10^3/uL (1.0-4.8) 0.8 x10^3/uL (1.0-4.8) Monocytes # (Auto) 0.8 x10^3/uL (0.0-1.1) 0.4 x10^3/uL (0.0-1.1) Eosinophils # (Auto) 1.0 x10^3/uL (0.0-0.7) 0.0 x10^3/uL (0.0-0.7) Basophils # (Auto) 0.1 x10^3/uL (0.0-0.2) 0.0 x10^3/uL (0.0-0.2) Sodium Level 140 mmol/L (136-145) 141 mmol/L (136-145) Potassium Level 4.1 mmol/L (3.5-5.1) 4.0 mmol/L (3.5-5.1) Chloride Level 105 mmol/L (98-107) 107 mmol/L (98-107) Carbon Dioxide Level 25 mmol/L (21-32) 24 mmol/L (21-32) Anion Gap 10 (6-14) 10 (6-14) Blood Urea Nitrogen 30 mg/dL (7-20) 23 mg/dL (7-20) Creatinine 1.5 mg/dL (0.6-1.0) 1.4 mg/dL (0.6-1.0) Estimated GFR (Cockcroft-Gault) 40.4 43.8 BUN/Creatinine Ratio 20 (6-20) Glucose Level 118 mg/dL (70-99) 158 mg/dL (70-99) Calcium Level 9.6 mg/dL (8.5-10.1) 9.2 mg/dL (8.5-10.1) Magnesium Level 2.2 mg/dL (1.8-2.4) Total Bilirubin 0.3 mg/dL (0.2-1.0) Aspartate Amino Transf (AST/SGOT) 18 U/L (15-37) Alanine Aminotransferase (ALT/SGPT) 24 U/L (14-59) Alkaline Phosphatase 80 U/L (46-116) Troponin I Quantitative < 0.017 ng/mL (0.000-0.055) < 0.017 ng/mL (0.000-0.055) < 0.017 ng/mL (0.000-0.055) XE-Jej-W-Type Natriuretic Peptide 129 pg/mL (0-449) Total Protein 7.8 g/dL (6.4-8.2) Albumin 3.8 g/dL (3.4-5.0) Albumin/Globulin Ratio 1.0 (1.0-1.7) Medications Current Medications Albuterol/ Ipratropium (Duoneb) 3 ml 1X ONCE NEB Last administered on at 09:42; Start 02/06/18 at 09:45; Stop 02/06/18 at 09:46; Status DC Amlodipine Besylate (Norvasc) 10 mg DAILY PO ; Start 02/06/18 at 12:00 Carvedilol (Coreg) 6.25 mg BIDWMEALS PO ; Start 02/06/18 at 12:00 Lisinopril (Prinivil) 40 mg DAILY PO ; Start 02/06/18 at 12:00 Promethazine HCl/ Codeine (Phenergan With Codeine Oral Syrup) 5 ml PRN Q6HRS PRN PO COUGH; Start 02/06/18 at 11:30 Non-Formulary Medication ([Ipratropium/ Albuterol Sulfate] ) 3 ml PRN Q6HRS PRN NEB SOA; Start 02/06/18 at 11:30; Status UNV Budesonide (Pulmicort) 0.5 mg RTBID NEB Last administered on 02/06/18at 19:34; Start 02/06/18 at 12:00 Atorvastatin Calcium (Lipitor) 20 mg QHS PO Last administered on 02/06/18at 21: 18; Start 02/06/18 at 21:00 Albuterol Sulfate (Ventolin Neb Soln) 2.5 mg PRN Q6HRS PRN NEB SHORTNESS OF BREATH; Start 02/06/18 at 11:30 Prednisone (Prednisone) 50 mg 1X ONCE PO Last administered on 02/06/18at 15:02 ; Start 02/06/18 at 12:00; Stop 02/06/18 at 12:02; Status DC Pantoprazole Sodium (Protonix) 40 mg DAILYAC PO ; Start 02/07/18 at 07:30 Active Scripts Active Prometh-Codein 6.25-10 mg/5 ml (Promethazine HCl/Codeine) 5 Ml Syrup 5 Ml PO Q6- 8HRS PRN Zithromax (Azithromycin) 250 Mg Tablet 1 Pkg PO UD [Ipratropium/Albuterol Sulfate] 3 ML Nebu 3 Ml NEB PRN Q6HRS PRN Reported Aspir-Low (Aspirin) 81 Mg Tablet.dr 1 Tab PO DAILY Pravastatin Sodium 20 Mg Tablet 1 Tab PO DAILY Protonix (Pantoprazole Sodium) 20 Mg Tablet.dr 40 Mg PO DAILY Hydralazine Hcl 50 Mg Tablet 1 Tab PO BID Advair 250-50 Diskus (Fluticasone/Salmeterol) 1 Each Disk.w.dev 1 Each IH Carvedilol (Carvedilol) 6.25 Mg Tablet 6.25 Mg PO Amlodipine Besylate 10 Mg Tablet 10 Mg PO Simvastatin 20 Mg Tablet 20 Mg PO Vitals/I & O Vital Sign - Last 24 Hours 12/23/18 12/23/18 12/23/18 12/23/18 08:38 08:52 09:17 09:44 Temp 98.0 98.0 Pulse 74 68 64 Resp 18 20 18 B/P (MAP) 176/80 (112) 135/63 (87) 131/60 (83) Pulse Ox 100 98 99 99 O2 Delivery Room Air Room Air Room Air Room Air 02/06/18 02/06/18 02/06/18 02/06/18 10:06 10:17 10:47 11:00 Temp 97.5 97.5 Pulse 62 62 58 57 Resp 22 22 22 16 B/P (MAP) 131/60 (83) 150/68 (95) 137/60 (85) 138/60 (86) Pulse Ox 99 99 99 100 O2 Delivery Room Air Room Air Room Air Room Air 02/06/18 02/06/18 02/06/18 02/06/18 14:34 19:30 19:39 19:50 Temp 97.6 97.9 97.6 97.9 Pulse 58 61 Resp 18 18 B/P (MAP) 112/68 (83) 135/79 (97) Pulse Ox 100 94 99 O2 Delivery Room Air Room Air Room Air Room Air 02/06/18 02/07/18 22:50 03:30 Temp 98.3 98.4 98.3 98.4 Pulse 68 74 Resp 18 18 B/P (MAP) 116/57 (76) 131/61 (84) Pulse Ox 97 99 O2 Delivery Room Air Room Air Intake and Output 02/06/18 02/06/18 02/07/18 15:01 23:01 07:01 Intake Total 200 ml Output Total 400 ml Balance -400 ml 200 ml EMILIANO PAINTER MD Feb 07, 2018 08:07
--- NOTE | 2018-02-07 08:18 | PDOC2 ---
SHIVANI PEREZ WASTEWATER DESIGN ENGINEER 02/07/18 0817: CARDIAC CONSULT DATE OF CONSULT Date of Consult DATE: 02/07/18 TIME: 08:09 REASON FOR CONSULT Reason for Consult: Chest tightness REFERRING PHYSICIAN Referring Physician: Dr. Yañez SOURCE Source: Chart review, Patient HISTORY OF PRESENT ILLNESS HISTORY OF PRESENT ILLNESS This is an 82 yo female who presented with complaints of shortness of breath and chest tightness. Patient reports having chest cold approximately two weeks ago. Was having difficulty breathing. Was seem by PCP and started on Prednisone. Patient reports no significant improvement in breathing since. Seems to be worse at night. Associated with chest tightness. Feels as if her "wind is being cut off" and she cannot catch her breath. Sitting up improves symptoms. Also complaints of soreness in her lower back. Denies and chest pain , dizziness, diaphoresis, palpitations, LE edema, or WOODARD. Has a history of HTN, HLP, and valvular insufficiency. Follows closely with Dr. Hansen with [facility]. Last stress test and echo approximately 6 months ago. Stress test reportedly normal. No previous heart catheterization. Daughter at bedside; would like to have echocardiogram completed now as she has difficulty getting an appointment with Dr. Hansen. PAST MEDICAL HISTORY Cardiovascular: HTN, Hyperlipidemia, Valve insufficiency Pulmonary: Asthma, COPD, Other (MC) CENTRAL NERVOUS SYSTEM: Other (no pertient hx) GI: GERD Heme/Onc: No pertinent hx Hepatobiliary: No pertinent hx Psych: No pertinent hx Musculoskeletal: low back pain Rheumatologic: No pertinent hx Infectious disease: No pertinent hx ENT: No pertinent hx Renal/: Chronic renal insuff Endocrine: No pertinent hx Dermatology: No pertinent hx PAST SURGICAL HISTORY Past Surgical History: Cholecystectomy, Tubal Ligation FAMILY HISTORY Family History: Heart Disease SOCIAL HISTORY Smoke: No Drugs: None Lives: Alone CURRENT MEDICATIONS CURRENT MEDICATIONS Current Medications Medications (Trade) Dose Ordered Sig/Bettie Route PRN Reason Start Time Stop Time Status Last Admin Dose Admin Albuterol/ Ipratropium (Duoneb) 3 ml 1X ONCE NEB 02/06/18 09:45 02/06/18 09:46 DC 02/06/18 09:42 Budesonide (Pulmicort) 0.5 mg RTBID NEB 02/06/18 12:00 02/06/18 19:34 Atorvastatin Calcium (Lipitor) 20 mg QHS PO 02/06/18 21:00 02/06/18 21:18 Prednisone (Prednisone) 50 mg 1X ONCE PO 02/06/18 12:00 02/06/18 12:02 DC 02/06/18 15:02 ALLERGIES ALLERGIES: Coded Allergies: No Known Drug Allergies (Unverified , 02/22/13) ROS Review of System 14 point ROS conducted with pertinent positives noted above in HPI. PHYSICAL EXAM General: Alert, Oriented X3, Cooperative, No acute distress HEENT: Atraumatic, Mucous membr. moist/pink Lungs: Clear to auscultation Heart: Regular rate, Normal S1, Normal S2, Other (3/6 systolic murmur ) Abdomen: Soft, No tenderness Extremities: No edema, Normal pulses Skin: No breakdown, No significant lesion Neuro: Normal speech, Sensation intact Psych/Mental Status: Mental status NL, Mood NL MUSCULOSKELETAL: Osteoarthritic changes both hands VITALS VITALS Vital Signs Date Time Temp Pulse Resp B/P (MAP) Pulse Ox O2 Delivery O2 Flow Rate FiO2 02/07/18 03:30 98.4 74 18 131/61 (84) 99 Room Air 98.4 LABS Lab: Laboratory Tests Test 02/06/18 08:26 02/06/18 13:15 02/06/18 16:30 02/07/18 03:40 White Blood Count 8.6 x10^3/uL (4.0-11.0) 7.1 x10^3/uL (4.0-11.0) Red Blood Count 4.19 x10^6/uL (3.50-5.40) 3.74 x10^6/uL (3.50-5.40) Hemoglobin 14.2 g/dL (12.0-15.5) 12.6 g/dL (12.0-15.5) Hematocrit 40.5 % (36.0-47.0) 36.2 % (36.0-47.0) Mean Corpuscular Volume 97 fL (79-100) 97 fL (79-100) Mean Corpuscular Hemoglobin 34 pg (25-35) 34 pg (25-35) Mean Corpuscular Hemoglobin Concent 35 g/dL (31-37) 35 g/dL (31-37) Red Cell Distribution Width 13.1 % (11.5-14.5) 12.8 % (11.5-14.5) Platelet Count 199 x10^3/uL (140-400) 185 x10^3/uL (140-400) Neutrophils (%) (Auto) 54 % (31-73) 83 % (31-73) Lymphocytes (%) (Auto) 24 % (24-48) 11 % (24-48) Monocytes (%) (Auto) 9 % (0-9) 6 % (0-9) Eosinophils (%) (Auto) 12 % (0-3) 0 % (0-3) Basophils (%) (Auto) 1 % (0-3) 0 % (0-3) Neutrophils # (Auto) 4.6 x10^3uL (1.8-7.7) 5.9 x10^3uL (1.8-7.7) Lymphocytes # (Auto) 2.0 x10^3/uL (1.0-4.8) 0.8 x10^3/uL (1.0-4.8) Monocytes # (Auto) 0.8 x10^3/uL (0.0-1.1) 0.4 x10^3/uL (0.0-1.1) Eosinophils # (Auto) 1.0 x10^3/uL (0.0-0.7) 0.0 x10^3/uL (0.0-0.7) Basophils # (Auto) 0.1 x10^3/uL (0.0-0.2) 0.0 x10^3/uL (0.0-0.2) Sodium Level 140 mmol/L (136-145) 141 mmol/L (136-145) Potassium Level 4.1 mmol/L (3.5-5.1) 4.0 mmol/L (3.5-5.1) Chloride Level 105 mmol/L (98-107) 107 mmol/L (98-107) Carbon Dioxide Level 25 mmol/L (21-32) 24 mmol/L (21-32) Anion Gap 10 (6-14) 10 (6-14) Blood Urea Nitrogen 30 mg/dL (7-20) 23 mg/dL (7-20) Creatinine 1.5 mg/dL (0.6-1.0) 1.4 mg/dL (0.6-1.0) Estimated GFR (Cockcroft-Gault) 40.4 43.8 BUN/Creatinine Ratio 20 (6-20) Glucose Level 118 mg/dL (70-99) 158 mg/dL (70-99) Calcium Level 9.6 mg/dL (8.5-10.1) 9.2 mg/dL (8.5-10.1) Magnesium Level 2.2 mg/dL (1.8-2.4) Total Bilirubin 0.3 mg/dL (0.2-1.0) Aspartate Amino Transf (AST/SGOT) 18 U/L (15-37) Alanine Aminotransferase (ALT/SGPT) 24 U/L (14-59) Alkaline Phosphatase 80 U/L (46-116) Troponin I Quantitative < 0.017 ng/mL (0.000-0.055) < 0.017 ng/mL (0.000-0.055) < 0.017 ng/mL (0.000-0.055) LD-Hrq-Y-Type Natriuretic Peptide 129 pg/mL (0-449) Total Protein 7.8 g/dL (6.4-8.2) Albumin 3.8 g/dL (3.4-5.0) Albumin/Globulin Ratio 1.0 (1.0-1.7) ASSESSMENT/PLAN ASSESSMENT/PLAN 1. Dyspnea with acute asthma exacerbation 2. Chest tightness; most probably related to above. AMI ruled out. 3. Valvular disease 4. Hypertension 5. Hyperlipidemia 6. JEAN on CKD Recommendations Continue statin, ACEi, BB, and Norvasc. Add ASA Check echo to assess LV function Lung optimization as per pulm Obtain cardiac records from [facility] from a CV perspective Follow up with Dr. Hansen with [facility] LOZAN[facility] MD 02/07/18 1024: CARDIAC CONSULT ASSESSMENT/PLAN ASSESSMENT/PLAN Pt. seen and examined. Agree with above SAP PPM CONSULTANT note. Given that symptoms improve with sitting up, not related to exertion with normal reported stress 6 months ago, less likely to be cardiac in origin. Nonetheless, since prednisone is not improving symptoms, if after full pulm tx, no improvement, could consider further evaluation in the form of a CCTA or other testing. Happy to f/u if patient has difficulty seeing primary template worker, otherwise, f /u with Dr. Hansen. SHIVANI PEREZ APRN Feb 07, 2018 08:17 ULISES ACOSTA MD Feb 07, 2018 10:24
[2018-02-07] MEDS: BUDESONIDE 0.5 MG/2 ML NEBU. NEB SCH (08:42)
[2018-02-07] MEDS ORDERED: ASPIRIN ENTERIC COATED 81 MG TABLET.DR. PO SCH (09:00)
[2018-02-07] MEDS ORDERED: ALBU2.5V8 NEB (09:02)
[2018-02-07 09:04] LABS: CHOLESTEROL/HDL RATIO 2.3
[2018-02-07] MEDS: LISINOPRIL 20 MG TABLET PO SCH (10:06)
[2018-02-07] MEDS: CARVEDILOL 6.25 MG TABLET. PO SCH (10:06)
[2018-02-07] MEDS: amLODIPine BESYLATE 10 MG TABLET PO SCH (10:07)
[2018-02-07 11:15] VITALS: BP 122/56
--- NOTE | 2018-02-07 14:28 | PDOC3 ---
Discharge Summary Visit Information Date of Admission: Feb 06, 2018 Date of Discharge: Feb 07, 2018 Admitting Diagnosis: Shortness of breath Final Diagnosis Problems Medical Problems: (1) Atypical chest pain Status: Acute (2) Dyspnea Status: Acute Brief Hospital Course Allergies Allergies Coded Allergies Type Severity Reaction Last Updated Verified No Known Drug Allergies 02/22/13 No Vital Signs Vital Signs Date Time Temp Pulse Resp B/P (MAP) Pulse Ox O2 Delivery O2 Flow Rate FiO2 02/07/18 11:15 97.6 57 20 122/56 (78) 97 Room Air 97.6 Lab Results Laboratory Tests Test 02/06/18 08:26 02/06/18 13:15 02/06/18 16:30 02/07/18 03:40 White Blood Count 8.6 x10^3/uL (4.0-11.0) 7.1 x10^3/uL (4.0-11.0) Red Blood Count 4.19 x10^6/uL (3.50-5.40) 3.74 x10^6/uL (3.50-5.40) Hemoglobin 14.2 g/dL (12.0-15.5) 12.6 g/dL (12.0-15.5) Hematocrit 40.5 % (36.0-47.0) 36.2 % (36.0-47.0) Mean Corpuscular Volume 97 fL (79-100) 97 fL (79-100) Mean Corpuscular Hemoglobin 34 pg (25-35) 34 pg (25-35) Mean Corpuscular Hemoglobin Concent 35 g/dL (31-37) 35 g/dL (31-37) Red Cell Distribution Width 13.1 % (11.5-14.5) 12.8 % (11.5-14.5) Platelet Count 199 x10^3/uL (140-400) 185 x10^3/uL (140-400) Neutrophils (%) (Auto) 54 % (31-73) 83 % (31-73) Lymphocytes (%) (Auto) 24 % (24-48) 11 % (24-48) Monocytes (%) (Auto) 9 % (0-9) 6 % (0-9) Eosinophils (%) (Auto) 12 % (0-3) 0 % (0-3) Basophils (%) (Auto) 1 % (0-3) 0 % (0-3) Neutrophils # (Auto) 4.6 x10^3uL (1.8-7.7) 5.9 x10^3uL (1.8-7.7) Lymphocytes # (Auto) 2.0 x10^3/uL (1.0-4.8) 0.8 x10^3/uL (1.0-4.8) Monocytes # (Auto) 0.8 x10^3/uL (0.0-1.1) 0.4 x10^3/uL (0.0-1.1) Eosinophils # (Auto) 1.0 x10^3/uL (0.0-0.7) 0.0 x10^3/uL (0.0-0.7) Basophils # (Auto) 0.1 x10^3/uL (0.0-0.2) 0.0 x10^3/uL (0.0-0.2) Sodium Level 140 mmol/L (136-145) 141 mmol/L (136-145) Potassium Level 4.1 mmol/L (3.5-5.1) 4.0 mmol/L (3.5-5.1) Chloride Level 105 mmol/L (98-107) 107 mmol/L (98-107) Carbon Dioxide Level 25 mmol/L (21-32) 24 mmol/L (21-32) Anion Gap 10 (6-14) 10 (6-14) Blood Urea Nitrogen 30 mg/dL (7-20) 23 mg/dL (7-20) Creatinine 1.5 mg/dL (0.6-1.0) 1.4 mg/dL (0.6-1.0) Estimated GFR (Cockcroft-Gault) 40.4 43.8 BUN/Creatinine Ratio 20 (6-20) Glucose Level 118 mg/dL (70-99) 158 mg/dL (70-99) Calcium Level 9.6 mg/dL (8.5-10.1) 9.2 mg/dL (8.5-10.1) Magnesium Level 2.2 mg/dL (1.8-2.4) Total Bilirubin 0.3 mg/dL (0.2-1.0) Aspartate Amino Transf (AST/SGOT) 18 U/L (15-37) Alanine Aminotransferase (ALT/SGPT) 24 U/L (14-59) Alkaline Phosphatase 80 U/L (46-116) Troponin I Quantitative < 0.017 ng/mL (0.000-0.055) < 0.017 ng/mL (0.000-0.055) < 0.017 ng/mL (0.000-0.055) FW-Qoe-L-Type Natriuretic Peptide 129 pg/mL (0-449) Total Protein 7.8 g/dL (6.4-8.2) Albumin 3.8 g/dL (3.4-5.0) Albumin/Globulin Ratio 1.0 (1.0-1.7) Triglycerides Level 37 mg/dL (0-150) Cholesterol Level 188 mg/dL (0-200) LDL Cholesterol, Calculated 100 mg/dL (0-100) VLDL Cholesterol, Calculated 7 mg/dL (0-40) Non-HDL Cholesterol Calculated 107 mg/dL (0-129) HDL Cholesterol 81 mg/dL (40-60) Cholesterol/HDL Ratio 2.3 Laboratory Tests Test 02/06/18 16:30 02/07/18 03:40 Troponin I Quantitative < 0.017 ng/mL (0.000-0.055) White Blood Count 7.1 x10^3/uL (4.0-11.0) Red Blood Count 3.74 x10^6/uL (3.50-5.40) Hemoglobin 12.6 g/dL (12.0-15.5) Hematocrit 36.2 % (36.0-47.0) Mean Corpuscular Volume 97 fL (79-100) Mean Corpuscular Hemoglobin 34 pg (25-35) Mean Corpuscular Hemoglobin Concent 35 g/dL (31-37) Red Cell Distribution Width 12.8 % (11.5-14.5) Platelet Count 185 x10^3/uL (140-400) Neutrophils (%) (Auto) 83 % (31-73) Lymphocytes (%) (Auto) 11 % (24-48) Monocytes (%) (Auto) 6 % (0-9) Eosinophils (%) (Auto) 0 % (0-3) Basophils (%) (Auto) 0 % (0-3) Neutrophils # (Auto) 5.9 x10^3uL (1.8-7.7) Lymphocytes # (Auto) 0.8 x10^3/uL (1.0-4.8) Monocytes # (Auto) 0.4 x10^3/uL (0.0-1.1) Eosinophils # (Auto) 0.0 x10^3/uL (0.0-0.7) Basophils # (Auto) 0.0 x10^3/uL (0.0-0.2) Sodium Level 141 mmol/L (136-145) Potassium Level 4.0 mmol/L (3.5-5.1) Chloride Level 107 mmol/L (98-107) Carbon Dioxide Level 24 mmol/L (21-32) Anion Gap 10 (6-14) Blood Urea Nitrogen 23 mg/dL (7-20) Creatinine 1.4 mg/dL (0.6-1.0) Estimated GFR (Cockcroft-Gault) 43.8 Glucose Level 158 mg/dL (70-99) Calcium Level 9.2 mg/dL (8.5-10.1) Triglycerides Level 37 mg/dL (0-150) Cholesterol Level 188 mg/dL (0-200) LDL Cholesterol, Calculated 100 mg/dL (0-100) VLDL Cholesterol, Calculated 7 mg/dL (0-40) Non-HDL Cholesterol Calculated 107 mg/dL (0-129) HDL Cholesterol 81 mg/dL (40-60) Cholesterol/HDL Ratio 2.3 Brief Hospital Course Ms. Arteaga is a pleasant 82yo F admitted with progressive shortness of breath with h/o asthma who was admitted after failing outpatient treatment at home. She did have some chest pain, has cardiology f/u at [facility]. Last stress test and echo approximately 6 months ago. Stress test reportedly normal. No previous heart catheterization. Feeling better today, discussed with daughter bedside. Wishes for discharge home with albuterol in addition to her nebulizers and advair. A/P: Dyspnea - has nebs at home, advair, needs a rescue inhaler Atypical chest pain possible asthma MORBID OBESITY HYPERLIPIDEMIA Hypertension Discharge Information Condition at Discharge: Improved Follow Up: Weeks (2) Disposition/Orders: D/C to Home Scheduled Aspirin (Aspir-Low) 81 Mg Tablet., 1 TAB PO DAILY for prevent strokes, #30 Ref 3 (Reported) Entered as Reported by: JEANETTE NARVAEZ on 02/06/181420 Last Taken: Unknown Dose on 02/06/18799 Last Action: New Order on 02/06 by JEANETTE NARVAEZ Azithromycin (Zithromax) 250 Mg Tablet, 1 PKG PO UD, #1 Prescribed by: VENU POOLE on 11/07/14958 Hydralazine Hcl (Hydralazine Hcl) 50 Mg Tablet, 1 TAB PO BID for high blood pressure, #180 Ref 3 (Reported) Entered as Reported by: JEANETTE NARVAEZ on 02/06/181420 Last Taken: Unknown Dose on 02/06/18799 Last Action: New Order on 02/06 by JEANETTE NARVAEZ Pantoprazole Sodium (Protonix) 20 Mg Tablet.dr, 40 MG PO DAILY for acid reflux, (Reported) Entered as Reported by: JEANETTE NARVAEZ on 02/06/181420 Last Taken: Unknown Dose on 02/06/18799 Last Action: New Order on 02/06 by JEANETTE NARVAEZ Pravastatin Sodium (Pravastatin Sodium) 20 Mg Tablet, 1 TAB PO DAILY for hyperlipidimia, #30 Ref 5 (Reported) Entered as Reported by: JEANETTE NARVAEZ on 02/06/181420 Last Action: New Order on 02/06/181420 by JEANETTE NARVAEZ Scheduled PRN Albuterol Sulfate (Proair Hfa) 8.5 Gm Hfa.aer.ad, 2.5 MG NEB PRN Q6HRS PRN for SHORTNESS OF BREATH for 30 Days, #1 Ref 5 Prescribed by: EMILIANO PAINTER MD on 02/07/18901 Promethazine HCl/Codeine (Prometh-Codein 6.25-10 mg/5 ml) 5 Ml Syrup, 5 ML PO Q6 -8HRS PRN for COUGH, #100 Prescribed by: VENU POOLE on 11/07/14958 Last Action: Converted on 02/06/181123 by CHERYL MARTINES MD [Ipratropium/Albuterol Sulfate] 3 ML NEBU, 3 ML NEB PRN Q6HRS PRN for SOA Prescribed by: VENU POOLE on 11/07/14958 Last Action: Converted on 02/06/181123 by CHERYL MARTINES MD Miscellaneous Medications Amlodipine Besylate (Amlodipine Besylate) 10 Mg Tablet, 10 MG PO, (Reported) Entered as Reported by: NASIM HAILE on 02/22/13833 Last Taken: Unknown Dose on 02/06/18799 Last Action: Last Taken Edited on 02/06/181420 by JEANETTE NARVAEZ Carvedilol (Carvedilol ) 6.25 Mg Tablet, 6.25 MG PO, (Reported) Entered as Reported by: NASIM HAILE on 02/22/13833 Last Taken: Unknown Dose on 02/06/18799 Last Action: Last Taken Edited on 02/06/181420 by JEANETTE NARVAEZ Fluticasone/Salmeterol (Advair 250-50 Diskus) 1 Each Disk.w.dev, 1 EACH IH, ( Reported) Entered as Reported by: NASIM HAILE on 02/22/13833 Last Action: Converted on 02/06/181123 by CHERYL MARTINES MD Discontinued Medications Lisinopril (Lisinopril) 40 Mg Tablet, 40 MG PO, (Reported) Entered as Reported by: NASIM HAILE on 02/22/13833 Last Action: Discontinued on 02/06/181420 by JEANETTE NARVAEZ Simvastatin (Simvastatin) 20 Mg Tablet, 20 MG PO, (Reported) Entered as Reported by: NASIM HAILE on 02/22/13833 Last Action: Converted on 02/06/181123 by MD INOCENCIO ELY CHRISTOPHER S MD Feb 07, 2018 14:28
--- NOTE | 2018-02-07 15:14 | CARD ---
MR#: [id number] Date of Study: 02/07/2018 Ordering Physician: SHIVANI PEREZ, Referring Physician: CHERYL MARTINES, Tech: Lisette Matias APPROVED REPORT EXAM: Two-dimensional and M-mode echocardiogram with Doppler and color Doppler. Other Information Quality : AverageHR: 64bpm INDICATION Dyspnea Chest tightness 2D DIMENSIONS RVDd2.8 (2.9-3.5cm)Left Atrium(2D)3.6 (1.6-4.0cm) IVSd1.0 (0.7-1.1cm)Aortic Root(2D)3.1 (2.0-3.7cm) LVDd5.3 (3.9-5.9cm)LVOT Diameter2.1 (1.8-2.4cm) PWd1.1 (0.7-1.1cm)LVDs2.8 (2.5-4.0cm) FS (%) 47.9 %SV106.8 ml LVEF(%)78.9 (>50%) Aortic Valve AoV Peak Ye.216.7cm/sAoV VTI40.0cm AO Peak GR.18.8mmHgLVOT Peak Ye.91.1cm/s LVOT VTI 21.44cmAO Mean GR.8mmHg ELKE (VMAX)1.61sk5ABA (VTI)1.94cm2 AI P 1/2 Omws855rn Mitral Valve MV E Bqewhbpu25.7cm/sMV DECEL GTFQ400nm MV A Jfnbtjtz22.2cm/sMV BPQ65jg E/A Ratio1.4MVA (PHT)3.66cm2 TDI E/Lateral E'9.6E/Medial E'12.4 Pulmonary Valve PV Peak Dkfiscjv617.3cm/sPV Peak Grad.4mmHg Tricuspid Valve TR P. Kgvtxrcw536qg/sRAP ZHYKFLQW8wzVg TR Peak Gr.04jlUcGIYD30vrRm Pulmonary Vein S1 Uqpanbbe71.2cm/sD2 Wczyeqqo95.8cm/s PVa ozypyxvp836gcus LEFT VENTRICLE The left ventricle is normal size. There is normal left ventricular wall thickness. The left ventricu lar systolic function is normal and the ejection fraction is within normal range. The Ejection Fracti on is 50-55%. There is normal LV segmental wall motion. Transmitral Doppler flow pattern is Grade II- pseudonormal filling dynamics. RIGHT VENTRICLE The right ventricle is normal size. There is normal right ventricular wall thickness. The right ventr icular systolic function is normal. ATRIA The left atrium is mildly dilated. The right atrium size is normal. The interatrial septum is intact with no evidence for an atrial septal defect or patent foramen ovale as noted on 2-D or Doppler imagi ng. AORTIC VALVE The aortic valve is thickened but opens well. The aortic valve is mildly calcified. Doppler and Color Flow revealed mild to moderate aortic regurgitation. Calculated aortic valve area is 2 cm2 with maxi mum pressure gradient of 19 mmHg and mean pressure gradient of 9 mmHg. MITRAL VALVE The mitral valve is normal in structure and function. There is no evidence of mitral valve prolapse. There is no mitral valve stenosis. Doppler and Color-flow revealed mild to moderate mitral regurgitat ion. TRICUSPID VALVE The tricuspid valve is normal in structure and function. Doppler and Color Flow revealed trace tricus pid regurgitation. There is no tricuspid valve stenosis. PULMONIC VALVE The pulmonic valve is not well visualized. Doppler and Color Flow revealed trace pulmonic valvular re gurgitation. There is no pulmonic valvular stenosis. GREAT VESSELS The aortic root is normal in size. Normal pulmonary venous flow (Doppler). The IVC is normal in size and collapses >50% with inspiration. PERICARDIAL EFFUSION There is no evidence of significant pericardial effusion. Critical Notification Critical Value: No <Conclusion> The left ventricular systolic function is normal and the ejection fraction is within normal range. T he Ejection Fraction is 50-55%. There is normal LV segmental wall motion. Doppler and Color Flow revealed mild to moderate aortic regurgitation. Doppler and Color-flow revealed mild to moderate mitral regurgitation. Signed by : Keyon Mederos, Electronically Approved : 02/07/2018 15:12:49
== END 2018-02-07 15:00 | disposition home or self-care (01) ==
LOC: ER 08:13 → 2 SOUTH 10:59
PROVIDERS: ADMIT Family Medicine; ATTEND Family Medicine
DX: R07.89 Other chest pain (principal); E66.01 Morbid (severe) obesity due to excess calories; E78.5 Hyperlipidemia, unspecified; I12.9 Hypertensive chronic kidney disease with stage 1 through stage 4 chronic kidney disease, or unspecified chronic kidney disease; N18.9 Chronic kidney disease, unspecified; J45.901 Unspecified asthma with (acute) exacerbation; I25.10 Atherosclerotic heart disease of native coronary artery without angina pectoris; G47.33 Obstructive sleep apnea (adult) (pediatric); K21.9 Gastro-esophageal reflux disease without esophagitis; N17.9 Acute kidney failure, unspecified; Z90.49 Acquired absence of other specified parts of digestive tract
CPT/HCPCS: 36415; 71046; 80048; 80053; 80061; 83735; 83880; 84484; 85025; 93005; 93306; 94640; 94760; 99284; G0378; J7512; J7620; J7626; G0379

== ENCOUNTER 2018-07-04 11:50 | Emergency (ER) | payer MEDICARE ==
[~2018-07-04] VITALS: Ht 162.6 cm; Wt 80.3 kg
[~2018-07-04 11:50] MED LIST changes: +ALBU2.5V8 NEB; -AMLO10TA6 PO; +AMLO10TA8 PO; +ASPI81TA50 PO; +HYDR-2869 PO; +PANT20TA2 PO; +PRAV20TA2 PO
[2018-07-04] MEDS ORDERED: hydrALAZINE 20 MG/ML VIAL. IVP ONE (13:30)
--- NOTE | 2018-07-04 13:56 | PHYS DOC ---
Past Medical History Past Medical History: Asthma, GERD, Hypertension Additional Past Medical Histor: "heart valve problem" (BELIA JONES APRN) Past Surgical History: Cholecystectomy, Tubal ligation Additional Past Surgical Histo: neck surgery, sinus surgery, lymph nodes removed (BELIA JONES APRN) Additional Information: non smoker Alcohol Use: None Drug Use: None (BELIA JONES APRN) Adult General Chief Complaint Chief Complaint: HYPERTENSION HPI HPI Patient is a 82 year old female who presents with high blood pressure. Patient went to her doctor's office today and was sent to ER due to high blood pressure. The pressure in her room was 205/91. States that she checks her blood pressure regularly yesterday was in the 130s systolic. Took her morning blood pressure medicine but did not take her noon dose. Denies any other symptoms. Pain is 0/10. No interventions prior to arrival. (BELIA JONES APRN) Review of Systems Review of Systems Constitutional: Denies fever or chills [] Eyes: Denies change in visual acuity, redness, or eye pain [] HENT: Denies nasal congestion or sore throat [] Respiratory: Denies cough or shortness of breath [] Cardiovascular: No additional information not addressed in HPI [] GI: Denies abdominal pain, nausea, vomiting, bloody stools or diarrhea [] : Denies dysuria or hematuria [] Musculoskeletal: Denies back pain or joint pain [] Integument: Denies rash or skin lesions [] Neurologic: Denies headache, focal weakness or sensory changes [] Endocrine: Denies polyuria or polydipsia [] All other systems were reviewed and found to be within normal limits, except as documented in this note. (BELIA JONES APRN) Current Medications Current Medications Current Medications Medications (Trade) Dose Ordered Sig/Bettie Start Time Stop Time Status Last Admin Dose Admin Hydralazine HCl (Apresoline Inj) 10 mg 1X ONCE 07/04/18 13:30 07/04/18 13:57 DC Hydrochlorothiazide (Microzide) 50 mg 1X STAT 07/04/18 14:01 07/04/18 14:04 DC 07/04/18 14:13 50 MG (EBENEZER REYES MD) Allergies Allergies Allergies Coded Allergies Type Severity Reaction Last Updated Verified No Known Drug Allergies 1/8/14 No (EBENEZER REYES MD) Physical Exam Physical Exam Constitutional: Well developed, well nourished, no acute distress, non-toxic appearance. [] HENT: Normocephalic, atraumatic, bilateral external ears normal, oropharynx [address], no oral exudates, nose normal. [] Eyes: PERRLA, EOMI, conjunctiva normal, no discharge. [] Neck: Normal range of motion, no tenderness, supple, no stridor. [] Cardiovascular:Heart rate regular rhythm, no murmur [] Lungs & Thorax: Bilateral breath sounds clear to auscultation with exception of slight wheeze in left upper lobe. Abdomen: Bowel sounds normal, soft, no tenderness, no masses, no pulsatile masses. [] Skin: Warm, dry, no erythema, no rash. [] Back: No tenderness, no CVA tenderness. [] Extremities: No tenderness, no cyanosis, no clubbing, ROM intact, no edema. [] Neurologic: Alert and oriented X 3, normal motor function, normal sensory function, no focal deficits noted. [] Psychologic: Affect normal, judgement normal, mood normal. [] (BELIA JONES APRN) Current Patient Data Vital Signs Vital Signs Date Time Temp Pulse Resp B/P (MAP) Pulse Ox O2 Delivery O2 Flow Rate FiO2 07/04/18 15:01 80 20 95 07/04/18 12:57 97.9 206/91 (129) Room Air 97.9 (EBENEZER REYES MD) Lab Values Laboratory Tests Test 07/04/18 14:15 White Blood Count 7.4 x10^3/uL (4.0-11.0) Red Blood Count 4.16 x10^6/uL (3.50-5.40) Hemoglobin 13.2 g/dL (12.0-15.5) Hematocrit 40.1 % (36.0-47.0) Mean Corpuscular Volume 96 fL (79-100) Mean Corpuscular Hemoglobin 32 pg (25-35) Mean Corpuscular Hemoglobin Concent 33 g/dL (31-37) Red Cell Distribution Width 12.7 % (11.5-14.5) Platelet Count 259 x10^3/uL (140-400) Neutrophils (%) (Auto) 53 % (31-73) Lymphocytes (%) (Auto) 26 % (24-48) Monocytes (%) (Auto) 10 % (0-9) H Eosinophils (%) (Auto) 9 % (0-3) H Basophils (%) (Auto) 1 % (0-3) Neutrophils # (Auto) 4.0 x10^3uL (1.8-7.7) Lymphocytes # (Auto) 1.9 x10^3/uL (1.0-4.8) Monocytes # (Auto) 0.7 x10^3/uL (0.0-1.1) Eosinophils # (Auto) 0.7 x10^3/uL (0.0-0.7) Basophils # (Auto) 0.1 x10^3/uL (0.0-0.2) Sodium Level 143 mmol/L (136-145) Potassium Level 3.7 mmol/L (3.5-5.1) Chloride Level 106 mmol/L (98-107) Carbon Dioxide Level 25 mmol/L (21-32) Anion Gap 12 (6-14) Blood Urea Nitrogen 16 mg/dL (7-20) Creatinine 1.2 mg/dL (0.6-1.0) H Estimated GFR (Cockcroft-Gault) 52.3 BUN/Creatinine Ratio 13 (6-20) Glucose Level 92 mg/dL (70-99) Calcium Level 9.3 mg/dL (8.5-10.1) Total Bilirubin 0.3 mg/dL (0.2-1.0) Aspartate Amino Transferase (AST) 19 U/L (15-37) Alanine Aminotransferase (ALT) 22 U/L (14-59) Alkaline Phosphatase 67 U/L (46-116) Troponin I Quantitative < 0.017 ng/mL (0.000-0.055) Total Protein 7.3 g/dL (6.4-8.2) Albumin 3.5 g/dL (3.4-5.0) Albumin/Globulin Ratio 0.9 (1.0-1.7) L Laboratory Tests 07/04/18 14:15 Laboratory Tests 07/04/18 14:15 (EBENEZER REYES MD) Lab Values Laboratory Tests Test 07/04/18 14:15 White Blood Count 7.4 x10^3/uL (4.0-11.0) Red Blood Count 4.16 x10^6/uL (3.50-5.40) Hemoglobin 13.2 g/dL (12.0-15.5) Hematocrit 40.1 % (36.0-47.0) Mean Corpuscular Volume 96 fL (79-100) Mean Corpuscular Hemoglobin 32 pg (25-35) Mean Corpuscular Hemoglobin Concent 33 g/dL (31-37) Red Cell Distribution Width 12.7 % (11.5-14.5) Platelet Count 259 x10^3/uL (140-400) Neutrophils (%) (Auto) 53 % (31-73) Lymphocytes (%) (Auto) 26 % (24-48) Monocytes (%) (Auto) 10 % (0-9) H Eosinophils (%) (Auto) 9 % (0-3) H Basophils (%) (Auto) 1 % (0-3) Neutrophils # (Auto) 4.0 x10^3uL (1.8-7.7) Lymphocytes # (Auto) 1.9 x10^3/uL (1.0-4.8) Monocytes # (Auto) 0.7 x10^3/uL (0.0-1.1) Eosinophils # (Auto) 0.7 x10^3/uL (0.0-0.7) Basophils # (Auto) 0.1 x10^3/uL (0.0-0.2) Sodium Level 143 mmol/L (136-145) Potassium Level 3.7 mmol/L (3.5-5.1) Chloride Level 106 mmol/L (98-107) Carbon Dioxide Level 25 mmol/L (21-32) Anion Gap 12 (6-14) Blood Urea Nitrogen 16 mg/dL (7-20) Creatinine 1.2 mg/dL (0.6-1.0) H Estimated GFR (Cockcroft-Gault) 52.3 BUN/Creatinine Ratio 13 (6-20) Glucose Level 92 mg/dL (70-99) Calcium Level 9.3 mg/dL (8.5-10.1) Total Bilirubin 0.3 mg/dL (0.2-1.0) Aspartate Amino Transferase (AST) 19 U/L (15-37) Alanine Aminotransferase (ALT) 22 U/L (14-59) Alkaline Phosphatase 67 U/L (46-116) Troponin I Quantitative < 0.017 ng/mL (0.000-0.055) Total Protein 7.3 g/dL (6.4-8.2) Albumin 3.5 g/dL (3.4-5.0) Albumin/Globulin Ratio 0.9 (1.0-1.7) L Laboratory Tests 07/04/18 14:15 Laboratory Tests 07/04/18 14:15 (BELIA JONES APRN) EKG EKG Interpreted by Dr. Reyes No STEMI, Sinus Rhythm rate of 79[] (BELIA JONES APRN) Radiology/Procedures Radiology/Procedures Preliminary read by Dr. Reyes No acute abnormalities.[] (BELIA JONES APRN) Course & Med Decision Making Course & Med Decision Making Pertinent Labs and Imaging studies reviewed. (See chart for details) Patient is non-symptomatic. Slight wheeze in upper lobe. States she has asthma and was short of breath and took a breathing treatment before going to doctor that helped. Will check labs, give HTN medication and see if blood pressure improves. Will also check x-ray and ekg. Patient is agreeable. Patient blood pressure dropped to 166 systolic without intervention. Will cancel hydralazine and give PO HCTZ of 50 mg per patient that she was supposed to take at noon. Labs are unremarkable with the exception of 1.2 creatinine which from lifetime labs appears to be baseline. Imaging is negative. Patient is asymptomatic for blood pressure so will send home to follow up with doctor. (BELIA JONES APRN) Course & Med Decision Making Staff Physician Addendum: I was working in the ER during the course of this patient's visit. I was available for consultation as needed, but I was not directly involved in the care of this patient. (EBENEZER REYES MD) Dragon Disclaimer Dragon Disclaimer This electronic medical record was generated, in whole or in part, using a voice recognition dictation system. (BELIA JONES APRN) Departure Departure Impression: Primary Impression: Hypertension Disposition: HOME, SELF-CARE Condition: STABLE Referrals: CRUZITO JENKINS (PCP) Additional Instructions: Follow up with doctor. Come back to ER as needed. Problem Qualifiers Primary Impression: Hypertension Hypertension type: unspecified Qualified Codes: I10 - Essential (primary) hypertension BELIA JONES APRN July 04, 2018 13:56 EBENEZER REYES MD July 05, 2018 18:24
[2018-07-04] MEDS ORDERED: hydroCHLOROthiazide 12.5 MG CAPSULE PO STA (14:01)
[2018-07-04 14:23] LABS: BASO # 0.1 x10^3/uL (0.0-0.2); BASO % 1 % (0-3); EOS # 0.7 x10^3/uL (0.0-0.7); EOS % 9 % (0-3); HEMATOCRIT 40.1 % (36.0-47.0); HEMOGLOBIN 13.2 g/dL (12.0-15.5); LYMPH # 1.9 x10^3/uL (1.0-4.8); LYMPH % 26 % (24-48); MEAN CORPUSCULAR HEMOGLOBIN 32 pg (25-35); MEAN CORPUSCULAR HGB CONC 33 g/dL (31-37); MEAN CORPUSCULAR VOLUME 96 fL (79-100); MONO # 0.7 x10^3/uL (0.0-1.1); MONO % 10 % (0-9); NEUT % 53 % (31-73); PLATELET COUNT 259 x10^3/uL (140-400); RED BLOOD COUNT 4.16 x10^6/uL (3.50-5.40); RED CELL DISTRIBUTION WIDTH 12.7 % (11.5-14.5); WHITE BLOOD COUNT 7.4 x10^3/uL (4.0-11.0)
[2018-07-04 14:35] LABS: CALCIUM 9.3 mg/dL (8.5-10.1); CREATININE 1.2 mg/dL (0.6-1.0); GFR 52.3; POTASSIUM 3.7 mmol/L (3.5-5.1)
[2018-07-04 14:41] LABS: ALBUMIN 3.5 g/dL (3.4-5.0); ALBUMIN/GLOBULIN RATIO 0.9 (1.0-1.7); TOTAL BILIRUBIN 0.3 mg/dL (0.2-1.0); TOTAL PROTEIN 7.3 g/dL (6.4-8.2)
[2018-07-04 15:01] VITALS: BP 198/92
--- NOTE | 2018-07-05 09:46 | RAD ---
AP and Lateral Views of the Chest 07/04/2018 1:23 PM Indication: Shortness of breath Comparison: Chest radiograph February 06, 2018 Findings: Emphysematous changes are similar. There is no new focal consolidation identified. Heart size is stable. There is no evidence of pneumothorax or pleural effusion. No acute osseous abnormalities are identified. Impression: No evidence of acute cardiopulmonary process. Electronically signed by: Bobby Herrera MD (07/04/2018 1:55 PM) [id number]
--- NOTE | 2018-07-05 09:46 | EKG ---
[facility] [address] [place] [address] Test Date: 2018-07-04 Test Time: 13:27:32 Pat Name: GAYLE BOURNE Department: Room: Gender: F [employer]: : 1935 Requested By: BELIA JONES Order Number: [id number] Reading MD: Measurements Intervals [place] Rate: 78 P: -90 [place]: 154 QRS: -17 QRSD: 82 T: 58 QT: 396 QTc: 455 Interpretive Statements SINUS RHYTHM VENTRICULAR PREMATURE COMPLEX(ES) LEFTWARD AXIS NON SPECIFIC T ABNORMALITY ABNORMAL ECG Compared to ECG 02/06/2018 08:48:35 Left-axis deviation now present T-wave abnormality now present Ventricular premature complex(es) no longer present
== END 2018-07-04 15:47 | disposition home or self-care (01) ==
LOC: ER 11:50
DX: I10 Essential (primary) hypertension (principal); K21.9 Gastro-esophageal reflux disease without esophagitis; J45.909 Unspecified asthma, uncomplicated
CPT/HCPCS: 36415; 71046; 80053; 84484; 85025; 93005; 99285-25

== ENCOUNTER → 2018-10-13 | Outpatient (CLI) | payer MEDICARE ==
[2018-10-13 09:50] LABS: ALBUMIN 3.3 g/dL (3.4-5.0); CALCIUM 8.9 mg/dL (8.5-10.1); CREATININE 1.5 mg/dL (0.6-1.0); GFR 40.4; PHOSPHORUS 3.7 mg/dL (2.6-4.7); POTASSIUM 4.1 mmol/L (3.5-5.1)
[2018-10-14 08:50] LABS: CREATININE PTH 1.36 mg/dL (0.57-1.00); PHOSPHORUS PTH 3.6 mg/dL (2.5-4.5); PTH INTACT 91 pg/mL (15-65)
== END | disposition home or self-care (01) ==
LOC: LAB 09:12
PROVIDERS: ATTEND Internal Medicine Nephrology
DX: N18.3 Chronic kidney disease, stage 3 (moderate) (principal); Z68.30 Body mass index [BMI] 30.0-30.9, adult
CPT/HCPCS: 36415; 80069; 83970

== ENCOUNTER → 2018-11-14 | Outpatient (CLI) | payer MEDICARE ==
[2018-11-14 10:07] LABS: ALBUMIN 3.6 g/dL (3.4-5.0); ALBUMIN/GLOBULIN RATIO 0.9 (1.0-1.7); CALCIUM 9.5 mg/dL (8.5-10.1); CREATININE 1.4 mg/dL (0.6-1.0); GFR 43.8; POTASSIUM 4.1 mmol/L (3.5-5.1); TOTAL BILIRUBIN 0.3 mg/dL (0.2-1.0); TOTAL PROTEIN 7.5 g/dL (6.4-8.2)
[2018-11-14 10:09] LABS: CHOLESTEROL/HDL RATIO 2.5
== END | disposition home or self-care (01) ==
LOC: LAB 09:10
PROVIDERS: ATTEND Internal Medicine Interventional Cardiology
DX: E78.5 Hyperlipidemia, unspecified (principal)
CPT/HCPCS: 36415; 80053; 80061

== ENCOUNTER → 2019-04-11 | Outpatient (CLI) | payer MEDICARE ==
[~2019-04-11] MED LIST changes: +SIMV20TA18 PO; -SIMV20TA3 PO
--- NOTE | 2019-04-11 09:28 | RAD ---
Exam: VENOUS LOWER EXTREMITY LEFT Indication: Left lower extremity edema Technique: Color-flow and pulsed wave duplex ultrasound with compression of venous structures of the left lower extremity. Comparison: None Available. Findings: Duplex ultrasound with compression of the deep venous structures of the left lower extremity from the common femoral vein through the popliteal vein is negative for DVT. The posterior tibial and peroneal veins are segmentally visualized and patent where seen. Normal venous waveforms and augmentation are noted throughout. Impression: No evidence for DVT in the left lower extremity. Electronically signed by: Benji Pagan MD (04/11/2019 9:25 AM) [id number]
== END | disposition home or self-care (01) ==
LOC: US 08:52
PROVIDERS: ATTEND Family Medicine
DX: R60.0 Localized edema (principal)
CPT/HCPCS: 93971

== ENCOUNTER 2019-04-21 11:35 | Emergency (ER) | payer MEDICARE ==
[~2019-04-21] VITALS: Ht 160 cm; Wt 79.5 kg
[2019-04-21] MEDS ORDERED: CETIRIZINE HCL 10 MG TABLET. PO STA (12:22)
[2019-04-21] MEDS ORDERED: methylPREDNISolone SOD SUCC PF 125 MG/2 ML VIAL. IV ONE (12:30)
[2019-04-21] MEDS ORDERED: IPRATRPIUM/ALBUTEROL 0.5/2.5MG 3 ML NEBU. NEB ONE (12:30)
--- NOTE | 2019-04-21 12:52 | RAD ---
EXAM: PORTABLE CHEST 1V INDICATION: Cough. TECHNIQUE: Single portable upright AP view chest COMPARISON: 07/04/2018 FINDINGS: The heart size is normal. The great vessels appear unremarkable. There is no hilar or mediastinal mass. Lungs show mild prominence of the pulmonary vasculature. There is no pleural effusion or pneumothorax. There are no significant osseous abnormalities. IMPRESSION: Findings of mild pulmonary vascular congestion. Otherwise no acute process. Electronically signed by: Susan Lawrence MD (04/21/2019 12:49 PM) [id number]
[2019-04-21 12:53] LABS: BASO # 0.1 x10^3/uL (0.0-0.2); BASO % 1 % (0-3); EOS # 0.5 x10^3/uL (0.0-0.7); EOS % 6 % (0-3); HEMATOCRIT 40.7 % (36.0-47.0); HEMOGLOBIN 13.4 g/dL (12.0-15.5); LYMPH # 1.4 x10^3/uL (1.0-4.8); LYMPH % 14 % (24-48); MEAN CORPUSCULAR HEMOGLOBIN 33 pg (25-35); MEAN CORPUSCULAR HGB CONC 33 g/dL (31-37); MEAN CORPUSCULAR VOLUME 99 fL (79-100); MONO # 0.7 x10^3/uL (0.0-1.1); MONO % 7 % (0-9); NEUT % 72 % (31-73); PLATELET COUNT 243 x10^3/uL (140-400); RED BLOOD COUNT 4.12 x10^6/uL (3.50-5.40); RED CELL DISTRIBUTION WIDTH 13.7 % (11.5-14.5); WHITE BLOOD COUNT 9.6 x10^3/uL (4.0-11.0)
[2019-04-21 13:52] LABS: CALCIUM 9.4 mg/dL (8.5-10.1); CREATININE 1.4 mg/dL (0.6-1.0); GFR 43.7; POTASSIUM 4.4 mmol/L (3.5-5.1)
[2019-04-21 13:56] LABS: ALBUMIN 3.3 g/dL (3.4-5.0); TOTAL BILIRUBIN 0.3 mg/dL (0.2-1.0); TOTAL PROTEIN 6.6 g/dL (6.4-8.2)
[2019-04-21 14:30] VITALS: BP 164/80
[2019-04-21] MEDS ORDERED: METH4TAB2 PO (14:52)
[2019-04-21] MEDS ORDERED: ALBU2.5V8 IH (14:52)
--- NOTE | 2019-04-21 14:52 | PHYS DOC ---
Past Medical History Past Medical History: Asthma, GERD, Hypertension Additional Past Medical Histor: "heart valve problem" Past Surgical History: Cholecystectomy, Tubal ligation Additional Past Surgical Histo: neck surgery, sinus surgery, lymph nodes removed Smoking Status: Never Smoker Alcohol Use: None Drug Use: None Adult General Chief Complaint Chief Complaint: SHORTNESS OF BREATH HPI HPI Patient is a 83 year old female with history of asthma, hypertension, CAD, who presents to the ED today complaining of shortness of breath due to her asthma that began a week ago. Patient reports seeing her PCP and was given a short course of steroids which helped then as soon as they were done symptoms returned. Denies any fever. Reports using her inhaler with some relief. Denies any chest pain. Review of Systems Review of Systems Constitutional: Denies fever or chills [] Eyes: Denies change in visual acuity, redness, or eye pain [] HENT: Denies nasal congestion or sore throat [] Respiratory: Reports shortness of breath. Denies cough Cardiovascular: No additional information not addressed in HPI [] GI: Denies abdominal pain, nausea, vomiting, bloody stools or diarrhea [] : Denies dysuria or hematuria [] Musculoskeletal: Denies back pain or joint pain [] Integument: Denies rash or skin lesions [] Neurologic: Denies headache, focal weakness or sensory changes [] All other systems were reviewed and found to be within normal limits, except as documented in this note. Current Medications Current Medications Current Medications Medications (Trade) Dose Ordered Sig/Bettie Start Time Stop Time Status Last Admin Dose Admin Albuterol/ Ipratropium (Duoneb) 3 ml 1X ONCE 04/21/19 12:30 04/21/19 12:31 DC 04/21/19 12:41 3 ML Cetirizine HCl (ZyrTEC) 10 mg 1X STAT 04/21/19 12:22 04/21/19 12:26 DC 04/21/19 12:48 10 MG Methylprednisolone Sodium Succinate (SOLU-Medrol 125MG VIAL) 125 mg 1X ONCE 04/21/19 12:30 04/21/19 12:31 DC 04/21/19 12:48 125 MG Allergies Allergies Allergies Coded Allergies Type Severity Reaction Last Updated Verified No Known Drug Allergies 02/22/13 No Physical Exam Physical Exam Constitutional: Well developed, well nourished, no acute distress, non-toxic appearance. [] HENT: Normocephalic, atraumatic, bilateral external ears normal, oropharynx moist, no oral exudates, nose normal. [] Eyes: PERRLA, EOMI, conjunctiva normal, no discharge. [] Neck: Normal range of motion, no tenderness, supple, no stridor. [] Cardiovascular:Heart rate regular rhythm, no murmur [] Lungs & Thorax: Bilateral breath sounds clear to auscultation [] Abdomen: Bowel sounds normal, soft, no tenderness, no masses, no pulsatile masses. [] Skin: Warm, dry, no erythema, no rash. [] Back: No tenderness, no CVA tenderness. [] Extremities: No tenderness, no cyanosis, no clubbing, ROM intact, no edema. [] Neurologic: Alert and oriented X 3, normal motor function, normal sensory function, no focal deficits noted. [] Psychologic: Affect normal, judgement normal, mood normal. [] Current Patient Data Vital Signs Vital Signs Date Time Temp Pulse Resp B/P (MAP) Pulse Ox O2 Delivery O2 Flow Rate FiO2 04/21/19 13:30 66 21 152/79 (103) 96 Room Air 04/21/19 11:55 98.3 98.3 Lab Values Laboratory Tests Test 04/21/19 12:40 04/21/19 13:20 White Blood Count 9.6 x10^3/uL (4.0-11.0) Red Blood Count 4.12 x10^6/uL (3.50-5.40) Hemoglobin 13.4 g/dL (12.0-15.5) Hematocrit 40.7 % (36.0-47.0) Mean Corpuscular Volume 99 fL (79-100) Mean Corpuscular Hemoglobin 33 pg (25-35) Mean Corpuscular Hemoglobin Concent 33 g/dL (31-37) Red Cell Distribution Width 13.7 % (11.5-14.5) Platelet Count 243 x10^3/uL (140-400) Neutrophils (%) (Auto) 72 % (31-73) Lymphocytes (%) (Auto) 14 % (24-48) L Monocytes (%) (Auto) 7 % (0-9) Eosinophils (%) (Auto) 6 % (0-3) H Basophils (%) (Auto) 1 % (0-3) Neutrophils # (Auto) 7.0 x10^3/uL (1.8-7.7) Lymphocytes # (Auto) 1.4 x10^3/uL (1.0-4.8) Monocytes # (Auto) 0.7 x10^3/uL (0.0-1.1) Eosinophils # (Auto) 0.5 x10^3/uL (0.0-0.7) Basophils # (Auto) 0.1 x10^3/uL (0.0-0.2) Sodium Level 142 mmol/L (136-145) Potassium Level 4.4 mmol/L (3.5-5.1) Chloride Level 106 mmol/L (98-107) Carbon Dioxide Level 29 mmol/L (21-32) Anion Gap 7 (6-14) Blood Urea Nitrogen 24 mg/dL (7-20) H Creatinine 1.4 mg/dL (0.6-1.0) H Estimated GFR (Cockcroft-Gault) 43.7 BUN/Creatinine Ratio 17 (6-20) Glucose Level 94 mg/dL (70-99) Lactic Acid Level 0.9 mmol/L (0.4-2.0) Calcium Level 9.4 mg/dL (8.5-10.1) Total Bilirubin 0.3 mg/dL (0.2-1.0) Aspartate Amino Transferase (AST) 15 U/L (15-37) Alanine Aminotransferase (ALT) 37 U/L (14-59) Alkaline Phosphatase 74 U/L (46-116) Creatine Kinase 84 U/L (26-192) Creatine Kinase MB (Mass) 0.9 ng/mL (0.0-3.6) Creatine Kinase MB Relative Index 1.1 % (0-4) Total Protein 6.6 g/dL (6.4-8.2) Albumin 3.3 g/dL (3.4-5.0) L Albumin/Globulin Ratio 1.0 (1.0-1.7) Laboratory Tests 04/21/19 12:40 Laboratory Tests 04/21/19 13:20 EKG EKG [address] Alejandra harris, no STEMI EKG different from 07/04/2018 patient reports hx of cardiac issues and states she follows up with a first coat sander and does not think this is a new finding[] Radiology/Procedures Radiology/Procedures []PROCEDURE: PORTABLE CHEST 1V EXAM: PORTABLE CHEST 1V INDICATION: Cough. TECHNIQUE: Single portable upright AP view chest COMPARISON: 07/04/2018 FINDINGS: The heart size is normal. The great vessels appear unremarkable. There is no hilar or mediastinal mass. Lungs show mild prominence of the pulmonary vasculature. There is no pleural effusion or pneumothorax. There are no significant osseous abnormalities. IMPRESSION: Findings of mild pulmonary vascular congestion. Otherwise no acute process. Electronically signed by: Jonah Lawrence MD (04/21/2019 12:49 PM) [id number] DICTATED and SIGNED BY: JONAH LAWRENCE MD DATE: 04/21/19 1249 Course & Med Decision Making Course & Med Decision Making Pertinent Labs and Imaging studies reviewed. (See chart for details) This is a 83-year-old female patient with a history of asthma presenting to the ED today complaining of shortness of breath for a week. Patient arrived in the ED with O2 sats of 96% on room air. Labs are negative for any acute findings, chest x-ray interpreted by radiologist was noted for mild pulmonary vascular congestion. O2 sats continued to be 98% on room air. Patient was given Solu-Medrol IV in the ED as well as a DuoNeb treatment. She reports feeling much better and her breathing returning to baseline. She was discharged on Medrol Dosepak and albuterol inhaler. Follow-up with her PCP in 1 week Denisha Disclaimer Dragon Disclaimer This electronic medical record was generated, in whole or in part, using a voice recognition dictation system. Departure Departure Impression: Primary Impression: Bronchitis with asthma, acute Disposition: HOME, SELF-CARE Condition: STABLE Referrals: DAE WHITLEY MD (PCP) Follow-up next week Patient Instructions: Asthma, Adult Additional Instructions: You were seen for asthma symptoms. Please use the prescribed medications as ordered and follow-up with your own doctor next week Scripts Albuterol Sulfate (Proair Hfa) 8.5 Gm Hfa.aer.ad 2 PUFF IH PRN Q4-6HRS PRN for wheezing for 21 Days, #1 INHALER 0 Refills Prov: MUTUNGA,ИРИНА GAME ARTIST 3/6/20 Methylprednisolone (MEDROL) 4 Mg Tab.ds.pk 1 PKG PO UD, #1 PKG Prov: ИРИНА DE JESUS APRN 04/21/19 ИРИНА DE JESUS APRN Apr 21, 2019 14:52
--- NOTE | 2019-04-21 19:23 | EKG ---
[facility] [address] [place] [address] Test Date: 2019-04-21 Test Time: 12:38:35 Pat Name: GAYLE BOURNE Department: Room: Gender: F Weight Shifter: : 1935 Requested By: ИРИНА DE JESUS Order Number: [id number] Reading MD: Measurements Intervals Bradley Rate: 55 P: [place]: QRS: -10 QRSD: 80 T: 79 QT: 394 QTc: 379 Interpretive Statements IRREGULAR RHYTHM, NO P-WAVE FOUND LEFTWARD AXIS T ABNORMALITY IN HIGH LATERAL LEADS ABNORMAL ECG RI6.01 No previous ECG available for comparison
== END 2019-04-21 14:54 | disposition home or self-care (01) ==
LOC: ER 11:35
DX: J20.9 Acute bronchitis, unspecified (principal); J45.909 Unspecified asthma, uncomplicated; I10 Essential (primary) hypertension; K21.9 Gastro-esophageal reflux disease without esophagitis
CPT/HCPCS: 36415; 71045; 80053; 82553; 83605; 83880; 84145; 85025; 87040; 93005; 94640; 96374; 99285; J2930

== ENCOUNTER → 2019-07-17 | Outpatient (CLI) | payer MEDICARE ==
[~2019-07-17] MED LIST changes: +ALBU2.5V8 IH; +METH4TAB2 PO
[2019-07-17 08:45] LABS: HEMOGLOBIN 13.3 g/dL (12.0-15.5)
[2019-07-17 09:08] LABS: ALBUMIN 3.4 g/dL (3.4-5.0); CALCIUM 9.1 mg/dL (8.5-10.1); CREATININE 1.7 mg/dL (0.6-1.0); GFR 34.9; PHOSPHORUS 3.7 mg/dL (2.6-4.7); POTASSIUM 3.9 mmol/L (3.5-5.1)
== END | disposition home or self-care (01) ==
LOC: LAB 08:20
PROVIDERS: ATTEND Family Medicine
DX: I13.0 Hypertensive heart and chronic kidney disease with heart failure and stage 1 through stage 4 chronic kidney disease, or unspecified chronic kidney disease (principal); N18.3 Chronic kidney disease, stage 3 (moderate); I50.9 Heart failure, unspecified; Z68.30 Body mass index [BMI] 30.0-30.9, adult
CPT/HCPCS: 36415; 80069; 85014; 85018

== ENCOUNTER 2019-11-21 10:13 | Emergency (ER) | payer MEDICARE ==
[~2019-11-21] VITALS: Ht 157.5 cm; Wt 80.4 kg
[2019-11-21 10:32] VITALS: BP 181/98
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
== END 2019-11-21 12:08 | disposition home or self-care (01) ==
LOC: ER 10:13
DX: M47.812 Spondylosis without myelopathy or radiculopathy, cervical region (principal); J45.909 Unspecified asthma, uncomplicated; K21.9 Gastro-esophageal reflux disease without esophagitis; I10 Essential (primary) hypertension; Z98.890 Other specified postprocedural states
CPT/HCPCS: 99281; 99282

== ENCOUNTER → 2019-11-29 | Outpatient (CLI) | payer MEDICARE ==
[2019-11-21 10:32] VITALS: BP 181/98
[~2019-11-29] MED LIST changes: +AMLO-187 PO; -AMLO10TA8 PO
--- NOTE | 2019-11-29 13:49 | RAD ---
EXAM: AP, open-mouth odontoid and lateral view cervical spine DATE: 11/29/2019 12:00 AM CLINICAL HISTORY: Reason: NECK PAIN. / Spl. Instructions: / History: COMPARISON: None available. FINDINGS: On the lateral view, the cervical spine is imaged from the skull base to anterior superior C6. Vertebral body heights are preserved. Postoperative changes of C4-5 anterior cervical discectomy and fusion is seen with solid interbody fusion. Mild C3-4 and C5-6 disc height loss. Small anterior endplate osteophytes. Facet degenerative changes are seen. No spondylolisthesis. No offset of the lateral masses of C1 on C2. Normal predental space. No significant prevertebral soft tissue swelling. IMPRESSION: 1. Multilevel spondylosis as above most prominent above and below the C4-5 interbody fusion. No hardware complication. 2. Negative acute fracture or subluxation. Electronically signed by: Dav Hurley MD (11/29/2019 1:46 PM) [id number]
== END ==
LOC: RAD 10:33
PROVIDERS: ATTEND Family Medicine
DX: M47.812 Spondylosis without myelopathy or radiculopathy, cervical region (principal); M25.78 Osteophyte, vertebrae; Z98.1 Arthrodesis status
CPT/HCPCS: 72040

== ENCOUNTER → 2019-12-13 | Outpatient (CLI) | payer MEDICARE ==
[2019-11-21 10:32] VITALS: BP 181/98
[2019-12-13 12:54] LABS: BILIRUBIN,URINE NEGATIVE (NEG); CLARITY,URINE CLEAR; COLOR,URINE YELLOW; NITRITE,URINE NEGATIVE (NEG); PH,URINE 5.5 (<5.0-8.0); PROTEIN,URINE NEGATIVE (NEG-TRACE); UROBILINOGEN,URINE 0.2 mg/dL (0.2 mg/dL)
[2019-12-13 13:00] LABS: ALBUMIN 3.8 g/dL (3.4-5.0); CALCIUM 9.6 mg/dL (8.5-10.1); CREATININE 1.4 mg/dL (0.6-1.0); GFR 43.7; PHOSPHORUS 3.2 mg/dL (2.6-4.7); POTASSIUM 3.8 mmol/L (3.5-5.1)
[2019-12-13 13:15] LABS: BACTERIA,URINE MODERATE /HPF (0-FEW); RBC,URINE 0 /HPF (0-2)
== END ==
LOC: LAB 11:13
PROVIDERS: ATTEND Internal Medicine Nephrology
DX: I12.9 Hypertensive chronic kidney disease with stage 1 through stage 4 chronic kidney disease, or unspecified chronic kidney disease (principal); I50.9 Heart failure, unspecified; E55.9 Vitamin D deficiency, unspecified; R82.71 Bacteriuria; Z68.30 Body mass index [BMI] 30.0-30.9, adult
CPT/HCPCS: 36415; 80069; 81001; 82306; 82570; 84156; 87086

== ENCOUNTER → 2020-01-17 | Outpatient (CLI) | payer MEDICARE ==
--- NOTE | 2020-01-17 15:11 | KCIC ---
MRI of the cervical spine without contrast 01/17/2020 CLINICAL HISTORY: Neck pain. Cervical radiculopathy. History of cervical fusion in 1996. TECHNIQUE: Unenhanced T1-weighted, T2-weighted and inversion recovery sagittal and gradient echo and T2-weighted axial images of the cervical spine were obtained. FINDINGS: Comparison is made to radiographs of the cervical spine dated 11/29/2019. Images from the study are degraded by patient motion. Minimal lateral curvature of the cervical spine is seen convex to the left. There is straightening of the normal cervical lordosis. The patient is post anterior discectomy and fusion using an anterior plate, bone screws and bone graft material at C4-5. Degenerative signal changes are seen involving all of the remaining discs of the cervical spine. Degenerative signal changes are seen within the marrow surrounding these discs. Loss of height of the C3-4, C5-6 and C6-7 discs is noted. No area of abnormal signal intensity is definitely visualized involving the cervical spinal cord. At the C2-3 disc space there is a mild generalized disc bulge. Degenerative changes are seen involving the uncovertebral and facet joints bilaterally. These findings do not result in significant central spinal canal or neural foraminal stenosis. At the C3-4 disc space there is a mild to moderate generalized disc bulge. Degenerative changes are seen involving the uncovertebral and facet joints bilaterally. These findings efface the anterior and posterior CSF resulting in mild to moderate central spinal canal stenosis with minimal cord impingement. Mild to moderate bilateral neural foraminal stenosis is seen. At the C4-5 level degenerative changes are seen involving the uncovertebral and facet joints bilaterally. These findings do not result in significant central spinal canal or neural foraminal stenosis. At the C5-6 disc space there is a mild generalized disc bulge. Degenerative changes are seen involving the uncovertebral and facet joints bilaterally. These findings do not result in significant central spinal canal or neural foraminal stenosis. At the C7-T1 disc space there is a mild generalized disc bulge. Degenerative changes are seen involving the uncovertebral and facet joints, right greater than left. These findings do not result in significant central spinal canal stenosis. Mild right neural foraminal stenosis is seen. The left neural foramen is patent. At the C7-T1 disc space there is a minimal generalized disc bulge. Degenerative changes are seen involving the facet joints bilaterally. These findings when combined do not result in significant central spinal canal or neural foraminal stenosis. IMPRESSION: 1. Post anterior discectomy and fusion at C4-5. 2. Degenerative changes are seen throughout the cervical spine. These findings result in mild to moderate central spinal canal stenosis with minimal cord impingement at C3-4. Mild to moderate bilateral neural foraminal stenosis is seen at C3-4. Mild right neural foraminal stenosis is seen at C7-T1. Electronically signed by: Cornelio Anand MD (01/17/2020 3:08 PM) [id number]
== END ==
LOC: KCIC MRI 12:21
PROVIDERS: ATTEND Family Medicine
DX: M47.23 Other spondylosis with radiculopathy, cervicothoracic region (principal); M48.03 Spinal stenosis, cervicothoracic region
CPT/HCPCS: 72141

== ENCOUNTER → 2020-05-14 | Outpatient (CLI) | payer MEDICARE ==
[2020-05-14 09:35] LABS: HEMATOCRIT 41.2 % (36.0-47.0); HEMOGLOBIN 13.5 g/dL (12.0-15.5)
[2020-05-14 10:25] LABS: ALBUMIN 3.4 g/dL (3.4-5.0); CALCIUM 9.1 mg/dL (8.5-10.1); CREATININE 1.6 mg/dL (0.6-1.0); GFR 37.3; PHOSPHORUS 3.2 mg/dL (2.6-4.7); POTASSIUM 4.3 mmol/L (3.5-5.1)
[2020-05-15 10:16] LABS: CALCIUM PTH 9.6 mg/dL (8.7-10.3); CREATININE PTH 1.48 mg/dL (0.57-1.00); PHOSPHORUS PTH 2.9 mg/dL (3.0-4.3); PTH INTACT 67 pg/mL (15-65)
== END ==
LOC: LAB 09:06
PROVIDERS: ATTEND Nurse Practitioner Adult Health
DX: I12.9 Hypertensive chronic kidney disease with stage 1 through stage 4 chronic kidney disease, or unspecified chronic kidney disease (principal); N18.32 Chronic kidney disease, stage 3b
CPT/HCPCS: 36415; 80069; 83970; 85014; 85018

== ENCOUNTER → 2020-10-07 | Outpatient (CLI) | payer MEDICARE ==
[~2020-10-07] MED LIST changes: +IOHEXOL 180 MG/ML 10 ML VIAL. ONE; +LORA10TA3 PO; +methylPREDNISolone ACETATE 80 MG/ML VIAL. ONE
--- NOTE | 2020-10-07 12:07 | PDOC1 ---
INITIAL PAIN CONSULT DATE OF SERVICE: DOS: DATE: 10/07/20 TIME: 11:59 CHIEF COMPLAINT: Chief Complaint: Neck and bilateral upper extremity pain HISTORY OF PRESENT ILLNESS: 84-year-old female presents history of pain base the neck and shoulders bilaterally for about 8 months now not result of any specific injury or accident that she is aware of is having pain base the neck and shoulders some of the upper extremities as well more noticeable with activity standing changing positions using upper extremities or reaching, also with weightbearing repetitive motions with the upper extremities even doing dishes folding close becomes very painful with pain radiating to the upper extremities sometimes into the forearms and hands but mostly in the shoulder some cells in the base of the neck patient reports also causing headaches when the pain in the neck is at its worst headache in the posterior aspect of the occipital region also in the parietal distribution. Patient reports no loss of motor function but significant fatigability of the upper extremities when the pain is present with any repetitive motions or reaching. Patient reports awakens her from sleep most nights once or twice a side effect of bowel bladder control does affect her ability to walk when she is carrying anything but not walking in general. Patient reports she has had physical therapy in the past which helped a small amount also doing some exercise and stretching strengthening on her own which helps but only mildly as well patient been taking tramadol as well as extract Tylenol both of which do decrease the pain by about 20 to 30%. Patient reports pain is constant sharp stabbing in the base of the neck and shoulders also upper extremities changes during the day with activity worse with stressful activities or repetitive motions and weightbearing and tingling in the arms and hands at times as well. Patient reports her disability rating 0-10 10 being worst is a 7 with at home responsibilities and recreation 8 with occupation 7 with self-care and life support activities as a 6. PAST MEDICAL HISTORY: PMH: Hypertension, arthritis, cataracts PREVIOUS SURGERIES: Past Surgical Hx: Cervical fusion 1995, cataract extraction 2013, cholecystectomy , breast biopsy June 2003, tubal ligation 1996 CURRENT MEDICATIONS: Current Meds: Active Scripts Medications Dose Route/Sig Max Daily Dose Days Date Category Loratadine 10 Mg Tablet 1 Tab PO DAILY 10/07/20 Reported Proair Hfa (Albuterol Sulfate) 8.5 Gm Hfa.aer.ad 2 Puff IH PRN Q4-6HRS PRN 21 3/6/20 Rx Proair Hfa (Albuterol Sulfate) 8.5 Gm Hfa.aer.ad 2.5 Mg NEB PRN Q6HRS PRN 30 02/07/18 Rx Aspir-Low (Aspirin) 81 Mg Tablet.dr 1 Tab PO DAILY 02/06/18 Reported Pravastatin Sodium 20 Mg Tablet 1 Tab PO DAILY 02/06/18 Reported Protonix (Pantoprazole Sodium) 20 Mg Tablet.dr 40 Mg PO DAILY 02/06/18 Reported Hydralazine Hcl 50 Mg Tablet 1 Tab PO BID 02/06/18 Reported Advair 250-50 Diskus (Fluticasone/Salmeterol) 1 Each Disk.w.dev 1 Each IH 02/22/13 Reported Carvedilol (Carvedilol) 6.25 Mg Tablet 6.25 Mg PO 02/22/13 Reported Amlodipine Besylate 10 Mg Tablet 10 Mg PO 02/22/13 Reported ALLERGIES; Allergies: Coded Allergies: No Known Drug Allergies (Unverified , 02/22/13) FAMILY HISTORY: Family Hx: Heart disease and hypertension SOCIAL HISTORY: Social Hx: Patient does not madeline alcohol does not smoke says any illegal illicit recreational drugs is lives at home with her son lives locally in [facility] and is currently retired. REVIEW OF SYSTEMS: ROS: Positive for those items mentioned in history of present illness, all systems are reviewed, otherwise negative ,and are complete full and well-documented on patient's chart. PHYSICAL EXAM: VS: Blood pressure 171/92, pulse 77 respiration 16 temperature is 98.0 F height is 5 feet 2 inches weight is 175 pounds PE: PHYSICAL EXAMINATION: GENERAL: The patient is awake, alert, oriented, appropriate, very pleasant in demeanor. HEENT: Shows normocephalic, atraumatic. Extraocular movements are intact and symmetrical. Oral cavity: Mucous membranes moist and pink. NECK: Shows anterior throat supple without palpable lymphadenopathy noted. Swallow reflex symmetrical. CHEST: Shows normal on inspection. Breath sounds are clear bilaterally, distant but no rales or rhonchi auscultated. HEART: Shows S1, S2 clear. No murmurs auscultated. ABDOMEN: Soft, nontender, nondistended, obese. No palpable organomegaly is noted. No rebound or guarding demonstrated. BACK: Shows spine grossly in the midline. Normal-appearing cervical lordotic curvature. Cervical paraspinous muscles show symmetrical with inspection, on palpation some moderate tenderness diffusely in the middle and lower distribution paraspinous muscles without specific trigger points but very firm and tender bilaterally. Patient shows good rotation motion cervical spine both laterally with some moderate tenderness with right greater than left lateral rotation performed fully past 45 degrees full extension full forward flexion is performed out significant increase in pain. There is slightly increased thoracic kyphosis, some minor flattening of the lumbar lordotic curvature. EXTREMITIES: Upper extremities show deep tendon reflexes 2+ in the biceps and triceps tendons. Motor exam is 5 on a scale of 5 with right strength, biceps and triceps flexion and 5/5 on the left. Peripheral pulses are 2+ radial. No peripheral edema is noted bilaterally. Upper extremities are warm and dry to touch, equal in color and appearance. Shoulder shrug strong and intact without loss of strength release bilaterally as is abduction of the shoulder 90 degrees without loss of strength bilaterally. SKIN: Shows warm and dry, good turgor. No edema. No sores, rashes or bruising throughout. IMPRESSION: Impression: 84-year-old female with 8-month history of increasing pain base the neck s houlders upper extremities and radicular fashion MRI scan cervical spine as noted with degenerative changes throughout with mild to moderate central spinal canal stenosis and minimal cord impingement C3-4 mild to moderate bilateral neuroforaminal stenosis at C3-4 with mild right neuroforaminal stenosis at C7-T1 Arthritis Hypertension Plan: Options were discussed with the patient including conservative medical management physical therapies none ventral techniques. Patient would like to pursue interventional techniques that she has been doing physical therapies and stretching and strengthening on her own. Discussed a cervical epidural steroid injection using description as well as anatomical models to describe the procedure. Risks were discussed including but not limited to: Bleeding, infection, possibility of epidural hematoma and subsequent neurological compromise, dural puncture, headaches, spinal cord and/or nerve damage, side effects of steroid medication, and poor results regarding pain control. Patient understands and wished to proceed. Patient will return to clinic in approximately 2 weeks for follow-up, was counseled as return appointment, activity level, and side effects be aware of. Procedure cervical epidural steroid injection at the C6-7 level, using local anesthetic under sterile prep and drape using C-arm fluoroscopic guidance under local anesthesia medications injected ;120 mg Depo-Medrol +5 mL normal saline and 2 mL contrast; condition at discharge is stable patient tolerated procedure well. and had no complications TIFF WOODARD MD Oct 07, 2020 12:07
--- NOTE | 2020-10-07 12:08 | PDOC4 ---
Procedure Note: ICD 10 Code: ICD 10 Code: M54.12 M 48.02 Procedure Note: Patient was consented for cervical epidural steroid injection with fluoroscopic guidance. Risks were discussed including but not limited to: Bleeding, infection, possibility of epidural hematoma and subsequent neurological compromise, dural puncture, headaches, spinal cord and/or nerve damage, side effects of steroid medication, and poor results regarding pain control. Patient understands and wished to proceed. Procedure cervical epidural steroid injection at the C6-7 level, using local anesthetic under sterile prep and drape using C-arm fluoroscopic guidance under local anesthesia medications injected ;120 mg Depo-Medrol +5 mL normal saline and 2 mL contrast; condition at discharge is stable patient tolerated procedure well. and had no complications TIFF WOODARD MD Oct 07, 2020 12:08
== END | disposition home or self-care (01) ==
LOC: PNCL 08:49
PROVIDERS: ATTEND Anesthesiology
DX: M54.2 Cervicalgia (principal); M48.061 Spinal stenosis, lumbar region without neurogenic claudication; M79.602 Pain in left arm; M79.601 Pain in right arm; I10 Essential (primary) hypertension; M19.90 Unspecified osteoarthritis, unspecified site; E78.00 Pure hypercholesterolemia, unspecified; J44.9 Chronic obstructive pulmonary disease, unspecified; J45.909 Unspecified asthma, uncomplicated; G47.30 Sleep apnea, unspecified; Z79.899 Other long term (current) drug therapy; Z90.49 Acquired absence of other specified parts of digestive tract; Z98.890 Other specified postprocedural states
CPT/HCPCS: 62321; J1040; Q9965

== ENCOUNTER → 2020-10-28 | Outpatient (CLI) | payer MEDICARE ==
[~2020-10-28] MED LIST changes: -IOHEXOL 180 MG/ML 10 ML VIAL. ONE; -methylPREDNISolone ACETATE 80 MG/ML VIAL. ONE
--- NOTE | 2020-10-28 09:48 | PDOC ---
Progress Note - Pain Clinic Date of Service: DOS: DATE: 10/28/20 TIME: 09:45 Diagnosis: Dx: Cervical radiculopathy with cervical degenerative disc disease and cervical spinal stenosis History or Present Illness: HPI: 84-year-old female returns for follow-up status post cervical epidural steroid injection x1. Patient reports about 50% improvement and is able to look up now which she was unable to prior she reports she is doing much better she is increasing her mobility with her neck and shoulder stiffness and pain in the b ase the neck and some rating to the top of the head but doing much better patient reports he still sleeping well at night increasing activity with greater ease and comfort still pain in the base the neck and shoulders as previously but much improved. Patient reports no headaches no visual disturbances and has been doing fairly well rates her pain as a 4 on a scale 10 is worst average and least over the past week and is a 4 today. Patient ports aching and dull can be tight and shooting as well bilateral upper extremities doing much better maintaining strength without loss of function or loss of ability and no dropping of items since her injection. Physical Exam: VS: Blood pressure is 176/99 pulse 90 respirations 16 temperature 97.9 F height is 5 feet 4 inches weight 179 pounds PE: PHYSICAL EXAMINATION: GENERAL: The patient is awake, alert, oriented, appropriate, very pleasant in demeanor HEENT: Shows normocephalic, atraumatic. Extraocular movements are intact and symmetrical. Oral cavity: Mucous membranes moist and pink. NECK: Shows anterior throat supple without palpable lymphadenopathy noted. Swallow reflex symmetrical. CHEST: Shows normal on inspection. Breath sounds are clear bilaterally, no rales or rhonchi. HEART: Shows S1, S2 clear. No murmurs auscultated. ABDOMEN: Soft, nontender, nondistended, obese. No palpable organomegaly is noted. BACK: Shows spine grossly in the midline. Normal-appearing cervical lordotic curvature. Cervical spine shows symmetrical on inspection with palpation some moderate tenderness in the paraspinous musculature in the cervical distribution in the inferior aspect as well as in the superior medial trapezius bilaterally diffusely. Patient shows good rotation of motion with both laterally as well as full extension full forward flexion with much better ability on exam today. There is slightly increased thoracic kyphosis, some minor flattening of the lumbar lordotic curvature. EXTREMITIES: Upper extremities show deep tendon reflexes 2+ in the biceps and triceps tendons. Motor exam is 5 on a scale of 5 with right pet walker, biceps and triceps flexion and 5/5 on the left. Peripheral pulses are 2+ radial. No peripheral edema is noted bilaterally. Upper extremities are warm and dry to touch, equal in color and appearance. SKIN: Shows warm and dry, good turgor. No edema. No sores, rashes or bruising throughout. Procedure: Procedure: Options discussed with the patient. Patient chart reviews her current medication regimen updated current review of systems updated today as well. We will hold any further injections at this time as patient is doing quite a bit better would like to wait on any further interventions. Patient was encouraged to maintain stretching strength exercises as well as oral analgesics in the meantime. Patient to follow-up at this time on as-needed basis. Medication Injected: Med Injected: None Condition at Discharge: Condition at Discharge: Condition at discharge is stable. TIFF WOODARD MD Oct 28, 2020 09:48
== END | disposition home or self-care (01) ==
LOC: PNCL 08:43
PROVIDERS: ATTEND Anesthesiology
DX: M50.10 Cervical disc disorder with radiculopathy, unspecified cervical region (principal); M48.02 Spinal stenosis, cervical region; I10 Essential (primary) hypertension; E78.00 Pure hypercholesterolemia, unspecified; J44.9 Chronic obstructive pulmonary disease, unspecified; G47.30 Sleep apnea, unspecified; Z90.49 Acquired absence of other specified parts of digestive tract; Z98.890 Other specified postprocedural states; Z79.899 Other long term (current) drug therapy
CPT/HCPCS: 99212; G0463

== ENCOUNTER → 2020-11-26 | Outpatient (CLI) | payer MEDICARE ==
[2020-11-26 11:22] LABS: ALBUMIN 3.4 g/dL (3.4-5.0); CALCIUM 8.9 mg/dL (8.5-10.1); CREATININE 1.4 mg/dL (0.6-1.0); GFR 43.6; PHOSPHORUS 3.5 mg/dL (2.6-4.7); POTASSIUM 4.3 mmol/L (3.5-5.1)
== END ==
LOC: LAB 10:22
PROVIDERS: ATTEND Internal Medicine Nephrology
DX: I13.0 Hypertensive heart and chronic kidney disease with heart failure and stage 1 through stage 4 chronic kidney disease, or unspecified chronic kidney disease (principal); N18.32 Chronic kidney disease, stage 3b; I50.9 Heart failure, unspecified; E55.9 Vitamin D deficiency, unspecified; Z68.29 Body mass index [BMI] 29.0-29.9, adult
CPT/HCPCS: 36415; 80069

== ENCOUNTER → 2020-12-04 | Outpatient (CLI) | payer MEDICARE ==
[~2020-12-04] MED LIST changes: +IOHEXOL 180 MG/ML 10 ML VIAL. ONE; +methylPREDNISolone ACETATE 40 MG/ML VIAL. ONE; +methylPREDNISolone ACETATE 80 MG/ML VIAL. ONE
--- NOTE | 2020-12-04 09:37 | PDOC ---
Progress Note - Pain Clinic Date of Service: DOS: DATE: 12/04/20 TIME: 09:33 Diagnosis: Dx: Cervical radiculopathy with cervical degenerative disease and cervical spinal stenosis History or Present Illness: HPI: 84-year-old female returns for follow-up status post cervical epidural steroid injection with very good results about 56% improvement after the first injection no longer has pain in the right arm but is now 6 specifically more located into the right neck and shoulder also some going to the right ear at times patient reports is worse with repetitive motions with the right upper extremity reaching overhead with her right hand sleeping on her right side and basically weightlifting or any type of repetitive motion with the right arm patient reports her pain is a 5 at all times average worst and least is a 5 today patient scribes pain is aching and dull shooting into the right upper extremity also in the anterior bicep into the anterior forearm at times as well. Patient reports its tingling burning cramping can be stabbing radiating can be constant or severe but again the arm is doing much better than the shoulder itself. Patient reports no bowel or bladder incontinence no other motor deficits. Physical Exam: VS: Blood pressure is two 1/106 pulse 79 respirations 18 temperature 98.1 F height is 5 feet 4 inches weight is 179 pounds PE: PHYSICAL EXAMINATION: GENERAL: The patient is awake, alert, oriented, appropriate, very pleasant in demeanor HEENT: Shows normocephalic, atraumatic. Extraocular movements are intact and symmetrical. Oral cavity: Mucous membranes moist and pink. NECK: Shows anterior throat supple without palpable lymphadenopathy noted. Swallow reflex symmetrical. CHEST: Shows normal on inspection. Breath sounds are clear bilaterally, no rales or rhonchi auscultated. HEART: Shows S1, S2 clear. No murmurs auscultated. ABDOMEN: Soft, nontender, nondistended, obese. No palpable organomegaly is noted. BACK: Shows spine grossly in the midline. Normal-appearing cervical lordotic curvature. Cervical paraspinous muscles show symmetrical inspection, palpation some moderate tenderness diffusely in inferior aspect cervical paraspinous muscles patient shows full rotation motion however the cervical spine with extension flexion as well as right and left lateral rotation without significant pain. There is slightly increased thoracic kyphosis, some minor flattening of the lumbar lordotic curvature. EXTREMITIES: Upper extremities show deep tendon reflexes deep in the biceps and triceps tendons. 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 Peripheral pulses are 2+ radial. No peripheral edema is noted bilaterally. Upper extremities are warm and dry to touch, equal in color and appearance. SKIN: Shows warm and dry, good turgor. No edema. No sores, rashes or bruising throughout. Procedure: Procedure: Options were discussed with patient. Patient chart reviews her current medication regimen updated current review of systems updated today as well. We will proceed with a cervical epidural steroid injection today with fluoroscopic guidance risks were discussed including but not limited to: Bleeding, infection, possibility of epidural hematoma and subsequent neurological compromise, dural puncture, headaches, spinal cord and/or nerve damage, side effects of steroid medication, and poor results regarding pain control. Patient understands and wished to proceed. Patient return to the clinic in approximate 2 weeks for follow-up, was counseled return appointment, activity level, and side effects beware of. Medication Injected: Med Injected: Procedure cervical epidural steroid injection at the C6-7 level, using local anesthetic under sterile prep and drape using C-arm fluoroscopic guidance under local anesthesia medications injected ;120 mg Depo-Medrol +5 mL normal saline and 2 mL contrast; condition at discharge is stable patient tolerated procedure well. and had no complications Condition at Discharge: Condition at Discharge: Condition at discharge stable, paced tolerated procedure well and had no complications. TIFF WOODARD MD Dec 04, 2020 09:37
--- NOTE | 2020-12-04 09:37 | PDOC4 ---
Procedure Note: ICD 10 Code: ICD 10 Code: M54.12 M4 8.02 M50.30 Procedure Note: Patient was consented for cervical epidural steroid injection with fluoroscopic guidance. Risks were discussed including but not limited to: Bleeding, infection, possibility of epidural hematoma and subsequent neurological compromise, dural puncture, headaches, spinal cord and/or nerve damage, side effects of steroid medication, and poor results regarding pain control. Patient understands and wished to proceed. Procedure cervical epidural steroid injection at the C6-7 level, using local anesthetic under sterile prep and drape using C-arm fluoroscopic guidance under local anesthesia medications injected ;120 mg Depo-Medrol +5 mL normal saline and 2 mL contrast; condition at discharge is stable patient tolerated procedure well. and had no complications TIFF WOODARD MD Dec 04, 2020 09:37
== END | disposition home or self-care (01) ==
LOC: PNCL 08:49
PROVIDERS: ATTEND Anesthesiology
DX: M50.10 Cervical disc disorder with radiculopathy, unspecified cervical region (principal); M48.02 Spinal stenosis, cervical region; I10 Essential (primary) hypertension; E78.00 Pure hypercholesterolemia, unspecified; J44.9 Chronic obstructive pulmonary disease, unspecified; Z90.49 Acquired absence of other specified parts of digestive tract; Z98.890 Other specified postprocedural states; Z79.899 Other long term (current) drug therapy; Z79.82 Long term (current) use of aspirin
CPT/HCPCS: 62321; J1030; J1040; Q9965

== ENCOUNTER 2021-05-11 05:12 | Emergency (ER) | payer MEDICARE ==
[~2021-05-11] VITALS: Ht 160 cm; Wt 74.1 kg
[~2021-05-11 05:12] MED LIST changes: -IOHEXOL 180 MG/ML 10 ML VIAL. ONE; -methylPREDNISolone ACETATE 40 MG/ML VIAL. ONE; -methylPREDNISolone ACETATE 80 MG/ML VIAL. ONE
[2021-05-11 05:19] VITALS: BP 181/84
--- NOTE | 2021-05-11 05:25 | PHYS DOC ---
Past Medical History Past Medical History: Asthma, GERD, Hypertension Additional Past Medical Histor: "heart valve problem" Past Surgical History: Cholecystectomy, Tubal ligation Additional Past Surgical Histo: neck surgery, sinus surgery, lymph nodes removed Smoking Status: Never Smoker Alcohol Use: None Drug Use: None General Adult EDM: Chief Complaint: SKIN RASH/ABSCESS HPI: HPI: Patient is a 85 year old male who presents with a rash on her forearms and her left flank. She reports no pain, reports that the rash feels itchy. She has used topical Benadryl and calamine lotion without relief. No oral medications have been taken. She reports that she has been outside in her garden recently. She has small, scattered, mildly erythematous papular type lesions on her forearms and one small area on her left flank, and these are locally pruritic. She denies chest pain, cough, dyspnea. She denies abdominal pain, nausea, vomiting. She denies facial or oral swelling, throat swelling, denies difficulty breathing or swallowing. Review of Systems: Review of Systems: As per HPI Heart Score: C/O Chest Pain: No Risk Factors: Risk Factors: DM, Current or recent (<one month) smoker, HTN, HLP, family history of CAD, obesity. Risk Scores: Score 0 - 3: 2.5% MACE over next 6 weeks - Discharge Home Score 4 - 6: 20.3% MACE over next 6 weeks - Admit for Clinical Observation Score 7 - 10: 72.7% MACE over next 6 weeks - Early Invasive Strategies Allergies: Allergies: Allergies Coded Allergies Type Severity Reaction Last Updated Verified No Known Drug Allergies 02/22/13 No Physical Exam: PE: Constitutional: Well developed, well nourished, no acute distress, non-toxic appearance. [] HENT: Normocephalic, atraumatic, oropharynx is patent and clear, no facial oral trauma, no oral or facial edema or swelling Eyes: Conjunctiva normal, no discharge. [] Neck: Trachea is midline Cardiovascular:Heart rate regular rhythm, +2 radial pulses Lungs & Thorax: Bilateral breath sounds clear to auscultation no wheezes, rales, rhonchi, no stridor, no Skin: She has multiple nevi on her torso, face and arms. She has a few scattered, small, slightly raised areas on bilateral dorsal forearms, as well as one area on her left torso, these appear to be small, superficial insect bite type lesions. No pustules, no fluctuance, no induration, no tenderness, no vesicles, no dermatomal pattern. No palm lesions. No facial rash. Back: No tenderness, no CVA tenderness. [] Extremities: No tenderness, no cyanosis, no clubbing, ROM intact Neurologic: Alert and oriented X 3, normal motor function, normal sensory function, no focal deficits noted. [] Psychologic: Affect normal, judgement normal, mood normal. [] EKG: EKG: [] Radiology/Procedures: Radiology/Procedures: [] Course & Med Decision Making: Course & Med Decision Making I discussed the findings, differential diagnosis and plan of care with her. No indication for emergent imaging, invasive exams or labs. Her rash appears to be mild, consistent with isolated small areas of insect bites. I discussed home care instructions with her. She may apply ice packs to help with itching. She may take oral or systemic Benadryl help with itching. Sedation precautions are given regarding this medication. She is prescribed topical triamcinolone cream to help with itching as well. Return precautions are given. Dragon Disclaimer: DragCompario Disclaimer: This electronic medical record was generated, in whole or in part, using a voice recognition dictation system. Departure Departure Impression: Primary Impression: Insect bites Qualified Codes: S50.869A - Insect bite (nonvenomous) of unspecified forearm, initial encounter; W57.XXXA - Bitten or stung by nonvenomous insect and other nonvenomous arthropods, initial encounter Disposition: 01 HOME / SELF CARE / HOMELESS Condition: STABLE Referrals: DAE WHITLEY MD (PCP) Patient Instructions: Insect Bite Additional Instructions: Return to the ER for temperature 100.4 or higher, severe pain, severe redness or swelling, yellow-green drainage from your bite sites, shortness of breath, chest pain, facial or oral swelling or other concerns. You may take [id number] oral Benadryl to help with itching. Use the prescription cream to help with itching as well. Avoid scratching, so as to avoid secondary infection or worsening of the rash. He may apply ice packs to the itchy areas. Follow-up with your primary care physician. Scripts Triamcinolone Acetonide (TRIAMCINOLONE ACETONIDE 0.5% CREAM) 15 Gm Cream..g. 1 SUSU TP BID for rash/itching, #30 GM apply a thin layer to affected areas as needed for itching Prov: MCKENZIE CATES DO 05/11/21 MCKENZIE CATES DO May 11, 2021 05:25
[2021-05-11] MEDS ORDERED: TRIA15CR TP (05:35)
== END 2021-05-11 05:59 | disposition home or self-care (01) ==
LOC: ER 05:12
DX: S50.862A Insect bite (nonvenomous) of left forearm, initial encounter (principal); S50.861A Insect bite (nonvenomous) of right forearm, initial encounter; J45.909 Unspecified asthma, uncomplicated; K21.9 Gastro-esophageal reflux disease without esophagitis; I10 Essential (primary) hypertension; W57.XXXA Bitten or stung by nonvenomous insect and other nonvenomous arthropods, initial encounter; Y93.89 Activity, other specified; Y92.89 Other specified places as the place of occurrence of the external cause; Y99.8 Other external cause status
CPT/HCPCS: 99283

== ENCOUNTER → 2021-05-16 | Outpatient (CLI) | payer MEDICARE ==
[2021-05-11 05:19] VITALS: BP 181/84
[~2021-05-16] MED LIST changes: +TRIA15CR TP
[2021-05-16 10:01] LABS: ALBUMIN 3.6 g/dL (3.4-5.0); CALCIUM 9.4 mg/dL (8.5-10.1); CREATININE 1.4 mg/dL (0.6-1.0); GFR 43.5; HEMOGLOBIN 12.9 g/dL (12.0-15.5); PHOSPHORUS 3.1 mg/dL (2.6-4.7); POTASSIUM 3.7 mmol/L (3.5-5.1)
== END ==
LOC: LAB 09:06
PROVIDERS: ATTEND Internal Medicine Nephrology
DX: I12.9 Hypertensive chronic kidney disease with stage 1 through stage 4 chronic kidney disease, or unspecified chronic kidney disease (principal); N18.32 Chronic kidney disease, stage 3b; I50.9 Heart failure, unspecified; E55.9 Vitamin D deficiency, unspecified; I13.0 Hypertensive heart and chronic kidney disease with heart failure and stage 1 through stage 4 chronic kidney disease, or unspecified chronic kidney disease; Z68.30 Body mass index [BMI] 30.0-30.9, adult
CPT/HCPCS: 36415; 80069; 85014; 85018